=== PATIENT | male | born 1940 | race Caucasian/White ===

== ENCOUNTER 2017-12-27 05:52 | Inpatient (IN) | payer MEDICARE, BC ==
[2017-12-27 07:14] LABS: #Lymphocytes 1.2 thou/uL (1.20-3.40); #Neutrophils 7.8 thou/uL (1.40-6.50); %Basophils 0.5 % (0.0-1.0); %Eosinophils 0.4 % (0.0-10.0); %Lymphocytes 11.6 % (21.0-51.0); %Monocytes 10.4 % (0.0-10.0); %Neutrophils 77.1 % (42.0-75.0); Hemoglobin 13.6 g/dL (14.0-18.0); Mean Corpuscular HGB CONC 33.1 g/dL (32.0-36.0); Mean Corpuscular Hemoglobin 33.1 pg (27.0-31.0); Mean Platelet Volume 10.5 fL (7.4-10.4); Platelet Count 152 thou/uL (130-400); RBC Distribution Width 11.9 % (11.5-14.5); Red Blood Cell (RBC) Count 4.12 mill/uL (4.70-6.10)
[2017-12-27] MEDS ORDERED: Cefepime 2 GM/10 ML SYR ONE (07:29)
[2017-12-27] MEDS ORDERED: Clindamycin/D5W 900 mg/50 ml Premix Bag ONE (07:29)
[2017-12-27 07:31] LABS: ALT (SGPT) 55 U/L (8-55); AST (SGOT) 29 U/L (5-34); Albumin 3.8 g/dL (3.4-4.8); Alkaline Phosphatase 208 U/L (40-150); Anion Gap 15 mmol/L (10-20); BUN (Urea Nitrogen) 19 mg/dL (8.4-25.7); Bilirubin, Total 0.9 mg/dL (0.2-1.2); CK (CPK) 48 U/L (30-200); Calc. Creatinine Clearance 0 mL/min (70-130); Calcium 9.6 mg/dL (7.8-10.44); Carbon Dioxide 25 mmol/L (23-31); Chloride 98 mmol/L (98-107); Estimated GFR-MDRD Greater than 90; Globulin 3.9 g/dL (2.4-3.5); Glucose 134 mg/dL (83-110); Potassium 4.1 mmol/L (3.5-5.1); Protein, Total 7.7 g/dL (5.8-8.1); Sodium 134 mmol/L (136-145)
[2017-12-27 07:35] LABS: CKMB 1.4 ng/mL (0-6.6); Troponin I 0.073 ng/mL (< 0.028)
[2017-12-27] MEDS ORDERED: Nitroglycerin 2% Ointment 1 INCH/1 GM Packet ONE (07:56)
[2017-12-27] MEDS ORDERED: Furosemide 40 MG/4 ML VIAL ONE ×2 (07:57→08:04)
[2017-12-27] MEDS ORDERED: Furosemide 40 MG TAB ONE (08:04)
--- NOTE | 2017-12-27 10:05 | RAD ---
PORTABLE AP CHEST: Date: 12/27/17 HISTORY: Dyspnea. Possible aspiration. COMPARISON: 04/24/16. FINDINGS: There are increased interstitial opacities bilaterally, which do appear increased from the prior stud y. These increased interstitial densities may be related to worsening chronic lung changes and/or sup erimposed infectious process or asymmetric pulmonary edema superimposed on chronic lung changes. No n ew area of consolidation or pleural fluid is seen. The cardiac silhouette and pulmonary vasculature a re within normal limits. Remote healed right-sided rib fractures are present. Multiple skin clips ove rlie the left lateral chest. IMPRESSION: Increased interstitial opacities bilaterally, which appear increased from the prior exam. Findings co uld potentially be related to worsening chronic interstitial lung changes, but superimposed infectiou s process or pulmonary edema superimposed on chronic lung changes is a possibility. Follow-up evaluat ion is recommended. POS: MEGHAN
[2017-12-27 10:44] LABS: Troponin I 0.126 ng/mL (< 0.028)
[2017-12-27 13:47] LABS: Troponin I 0.118 ng/mL (< 0.028)
[2017-12-27] MEDS ORDERED: Clindamycin/D5W 600 MG in Premix Bag 1 BAG IVPB SCH (14:00)
[2017-12-27] MEDS ORDERED: Clindamycin/D5W 300 MG/50 ML BAG IVPB SCH (14:13)
[2017-12-27] MEDS ORDERED: Ondansetron HCl/PF 4 MG/2 ML Vial IVP PRN ×2 (14:13→14:14)
[2017-12-27] MEDS ORDERED: Acetaminophen 325 MG TAB PO PRN ×2 (14:13→14:14)
[2017-12-27] MEDS ORDERED: Ondansetron ODT 4 MG TAB PO PRN (14:13)
[2017-12-27] MEDS ORDERED: Ondansetron ODT 4 MG TAB SL PRN (14:14)
[2017-12-27] MEDS ORDERED: Nitroglycerin 2% Ointment 1 INCH/1 GM Packet TOP SCH (14:15)
[2017-12-27] MEDS: Sodium Chloride 0.9% 1,000 ML IV SCH (15:08)
[2017-12-27] MEDS: Clindamycin/D5W 900 MG in Premix Bag 1 BAG IVPB SCH ×2 (15:16→23:54)
[2017-12-27] MEDS ORDERED: Prevnar 13-Val Conj/PF 0.5 ML SYRINGE IM ONE (15:45)
[2017-12-27] MEDS ORDERED: Cefepime 2 GM, Syringe 2.5 ML in Sterile Water 10 ML SLOW IVP SCH (20:00)
[2017-12-27] MEDS: Famotidine 20 MG TAB PO SCH (21:29)
[2017-12-28] MEDS: Sodium Chloride 0.9% 1,000 ML IV SCH ×2 (04:30→13:22)
[2017-12-28 05:20] LABS: ALT (SGPT) 39 U/L (8-55); AST (SGOT) 23 U/L (5-34); Albumin 3.4 g/dL (3.4-4.8); Alkaline Phosphatase 166 U/L (40-150); Anion Gap 10 mmol/L (10-20); BUN (Urea Nitrogen) 21 mg/dL (8.4-25.7); Bilirubin, Total 1.3 mg/dL (0.2-1.2); Calc. Creatinine Clearance 87 mL/min (70-130); Calcium 9.1 mg/dL (7.8-10.44); Carbon Dioxide 27 mmol/L (23-31); Chloride 101 mmol/L (98-107); Estimated GFR-MDRD Greater than 90; Globulin 3.4 g/dL (2.4-3.5); Glucose 89 mg/dL (83-110); Magnesium 1.9 mg/dL (1.6-2.6); Potassium 3.6 mmol/L (3.5-5.1); Protein, Total 6.8 g/dL (5.8-8.1); Sodium 134 mmol/L (136-145)
[2017-12-28 05:40] LABS: Band 3 % (5-11); Eosinophils 3 % (0-10); Hemoglobin 11.9 g/dL (14.0-18.0); Lymphocytes 14 % (21-51); MDiff Complete? YES; Macrocytosis SLIGHT = 6-15 cells (100X) (0-5/hpf); Mean Corpuscular HGB CONC 33.4 g/dL (32.0-36.0); Mean Corpuscular Hemoglobin 33.4 pg (27.0-31.0); Mean Platelet Volume 10.2 fL (7.4-10.4); Monocytes 8 % (0-10); Neutrophil 71 % (42-75); PLT Morphology Comment Appears Adequate; Platelet Count 136 thou/uL (130-400); RBC Distribution Width 11.9 % (11.5-14.5); Reactive Lymphocytes 1 % (0-10); Red Blood Cell (RBC) Count 3.57 mill/uL (4.70-6.10); White Blood Cell (WBC) Count 6.1 thou/uL (4.8-10.8)
[2017-12-28] MEDS: Clindamycin/D5W 900 MG in Premix Bag 1 BAG IVPB SCH ×2 (08:31→16:34)
[2017-12-28] MEDS: Famotidine 20 MG TAB PO SCH (08:33)
[2017-12-28] MEDS ORDERED: Bisacodyl 10 MG SUPP PR PRN (13:02)
--- NOTE | 2017-12-28 13:08 | PDOC.PN ---
- Subjective Encounter Start Date: 12/28/17 Encounter Start Time: 13:00 Subjective: f/u for suspected aspiration PNA with chronic dysphagia, PEG tube after -: CVA 2014. TF's on hold but reports pt looks better today. Received -: TF's nocturnally at [facility]. - Objective Resuscitation Status: Resuscitation Status DNR:Do Not Resuscitate MAR Reviewed: Yes Vital Signs & Weight: Vital Signs (12 hours) Temp Pulse Resp BP BP Pulse Ox 12/28/17 11:45 97.7 F 63 18 117/57 L 95 12/28/17 07:05 97.8 F 61 24 H 131/59 L 95 12/28/17 04:00 98.2 F 74 17 132/61 92 L Weight Weight 164 lb 9.6 oz I&O: 12/27/17 12/28/17 12/29/17 06:59 06:59 06:59 Intake Total 200 920 Output Total 500 Balance 200 420 Result Diagrams: 12/28/17 04:40 12/28/17 04:40 Additional Labs: Accuchecks 12/28/17 11:32 POC Glucose 96 Microbiology 12/27/17 07:00 Venous blood - Right Arm Blood Culture - Preliminary Gram Positive Cocci 12/27/17 06:38 Venous blood - Right Arm Blood Culture - Preliminary Gram Positive Cocci Laboratory Tests 12/27/17 12/27/17 12/27/17 06:38 07:01 07:01 Sodium 134 L Troponin I 0.073 H B-Natriuretic Peptide 45.0 12/27/17 12/27/17 10:10 13:21 Sodium Troponin I 0.126 H 0.118 H B-Natriuretic Peptide Radiology Reviewed by me: Yes (PCXR - interstitial opacities bilat) EKG Reviewed by me: Yes (Tele - SR) Phys Exam - Physical Examination alert, aphasic HEENT: PERRLA, oral pharynx no lesions Neck: no JVD, supple coarse sounds globally Cardiovascular: RRR PEG site CDI Gastrointestinal: soft, non-tender, no distention, positive bowel sounds Musculoskeletal: no edema, pulses present R hemiparesis, expressive aphasia Skin: normal turgor, cap refill <2 seconds Deviation from normal: Duggan with carlos urine Dx/Plan (1) Aspiration pneumonia due to regurgitated gastric secretions Code(s): J69.0 - PNEUMONITIS DUE TO INHALATION OF FOOD AND VOMIT Status: Acute Qualifiers: Laterality: bilateral Lung location: lower lobe of lung Qualified Code(s) : J69.0 - Pneumonitis due to inhalation of food and vomit Comment: Continue Clindamycin, add Vancomycin and Cefepime, Duonebs q4h prn, NPO (2) Sepsis due to pneumonia Code(s): J18.9 - PNEUMONIA, UNSPECIFIED ORGANISM; A41.9 - SEPSIS, UNSPECIFIED ORGANISM Status: Acute Comment: Gm + cocci in 2/2 blood cx, add Vancomycin pending final identification, continue IVF's (3) CVA, old, aphasia Code(s): I69.320 - APHASIA FOLLOWING CEREBRAL INFARCTION Status: Chronic Comment: with chronic dysphagia, R hemiparesis and bed bound status (4) GERD (gastroesophageal reflux disease) Code(s): K21.9 - GASTRO-ESOPHAGEAL REFLUX DISEASE WITHOUT ESOPHAGITIS Status: Chronic Comment: Pepcid 20mg BID (5) PEG (percutaneous endoscopic gastrostomy) status Code(s): Z93.1 - GASTROSTOMY STATUS Status: Chronic Comment: Hold Jevity 1.5 another 24h, consult dietitian for resumption of TF's and low-volume - Plan plan discussed w/ family, continue antibiotics, PT/OT, social services counselor, speech therapy, respiratory therapy, DVT proph w/SCDs Continue Clindamycin -: Add Vancomycin and Cefepime -: Change IVF D5NS 100ml/h -: Change to inpt status -: Dietitian consult for adjustment to current TF regimen * AM lab: BMP, CBC * Code status: DNR
[2017-12-28] MEDS ORDERED: Acetaminophen 650 MG/20.3 ML UDCUP PO PRN (13:14)
[2017-12-28] MEDS ORDERED: Artificial Tear Sol 15 ML BOT EA EYE PRN (13:15)
[2017-12-28] MEDS ORDERED: Famotidine 20 MG TAB PER TUBE SCH (13:30)
[2017-12-28] MEDS: Vancomycin HCl 1 GM in Premix Bag 1 BAG IVPB SCH (14:45)
[2017-12-28] MEDS: Dextrose 5 % And 0.9 % NaCl 1,000 ML IV SCH (14:45)
[2017-12-28] MEDS ORDERED: Cefepime 2 GM in Sodium Chloride 0.9% 100 ML IVPB SCH (21:00)
[2017-12-28] MEDS: traZODone HCl 50 MG TAB PER TUBE SCH (21:27)
[2017-12-28] MEDS: Famotidine 20 MG TAB PER TUBE SCH (21:27)
[2017-12-28] MEDS: Finasteride 5 MG TAB PO SCH (21:28)
[2017-12-29] MEDS: Dextrose 5 % And 0.9 % NaCl 1,000 ML IV SCH ×3 (00:02→20:30)
[2017-12-29] MEDS: Vancomycin HCl 1 GM in Premix Bag 1 BAG IVPB SCH ×2 (04:33→15:40)
[2017-12-29 05:32] LABS: Band 1 % (5-11); Eosinophils 7 % (0-10); Lymphocytes 33 % (21-51); MDiff Complete? YES; Mean Corpuscular HGB CONC 33.4 g/dL (32.0-36.0); Mean Corpuscular Hemoglobin 33.4 pg (27.0-31.0); Mean Platelet Volume 9.8 fL (7.4-10.4); Monocytes 13 % (0-10); Neutrophil 46 % (42-75); PLT Morphology Comment Appears Adequate; Platelet Count 137 thou/uL (130-400); RBC Distribution Width 11.6 % (11.5-14.5); White Blood Cell (WBC) Count 4.8 thou/uL (4.8-10.8)
[2017-12-29 05:35] LABS: Anion Gap 7 mmol/L (10-20); BUN (Urea Nitrogen) 18 mg/dL (8.4-25.7); Calc. Creatinine Clearance 99 mL/min (70-130); Calcium 8.7 mg/dL (7.8-10.44); Carbon Dioxide 28 mmol/L (23-31); Chloride 104 mmol/L (98-107); Estimated GFR-MDRD Greater than 90; Glucose 92 mg/dL (83-110); Potassium 3.8 mmol/L (3.5-5.1); Sodium 135 mmol/L (136-145)
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
[2017-12-29] MEDS: Cefepime 2 GM, Syringe 2.5 ML in Sterile Water 10 ML SLOW IVP SCH ×2 (09:18→21:05)
[2017-12-29] MEDS: Clindamycin/D5W 900 MG in Premix Bag 1 BAG IVPB SCH ×3 (09:18→17:03)
[2017-12-29] MEDS: Famotidine 20 MG TAB PER TUBE SCH ×2 (09:19→21:02)
[2017-12-29 12:35] VITALS: BMI 22.6
--- NOTE | 2017-12-29 14:51 | PDOC.PN ---
- Subjective Encounter Start Date: 12/29/17 Encounter Start Time: 14:40 Subjective: f/u for suspected aspiration with chronic dysphagia after CVA and TF 's -: Overall doing ok per nursing. ST recommending bolus feeds for daytime. - Objective MAR Reviewed: Yes Vital Signs & Weight: Vital Signs (12 hours) Temp Pulse Resp BP Pulse Ox 12/29/17 12:00 65 20 136/66 97 12/29/17 08:00 98.1 F 65 20 122/58 L 97 12/29/17 03:28 97.8 F 64 20 122/61 94 L Weight Admit Weight 162 lb 3.2 oz Weight 166 lb 8 oz I&O: 12/28/17 12/29/17 12/30/17 06:59 06:59 06:59 Intake Total 2570 Output Total 1000 Balance 1570 Result Diagrams: 12/29/17 04:58 12/29/17 04:58 Additional Labs: Microbiology 12/27/17 07:00 Venous blood - Right Arm Blood Culture - Preliminary Gram Positive Cocci 12/27/17 07:00 Venous blood - Right Arm Blood Culture - Preliminary Coagulase Neg Staphylococcus 12/27/17 06:38 Venous blood - Right Arm Blood Culture - Preliminary Staphylococcus species 12/27/17 06:38 Venous blood - Right Arm Blood Culture - Preliminary Gram Positive Cocci Laboratory Tests 12/27/17 12/27/17 12/27/17 06:38 07:01 07:01 Sodium 134 L Troponin I 0.073 H B-Natriuretic Peptide 45.0 12/27/17 12/27/17 10:10 13:21 Sodium Troponin I 0.126 H 0.118 H B-Natriuretic Peptide EKG Reviewed by me: Yes (Tele - SR) Phys Exam - Physical Examination Constitutional: NAD alert HEENT: PERRLA, oral pharynx no lesions Neck: no JVD coarse sounds bilat Cardiovascular: RRR PEG site CDI Gastrointestinal: soft, non-tender, no distention, positive bowel sounds Musculoskeletal: no edema, pulses present Skin: normal turgor, cap refill <2 seconds Dx/Plan (1) Aspiration pneumonia due to regurgitated gastric secretions Code(s): J69.0 - PNEUMONITIS DUE TO INHALATION OF FOOD AND VOMIT Status: Acute Qualifiers: Laterality: bilateral Lung location: lower lobe of lung Qualified Code(s) : J69.0 - Pneumonitis due to inhalation of food and vomit Comment: Continue Clindamycin, add Vancomycin and Cefepime, Duonebs q4h prn, NPO (2) Sepsis due to pneumonia Code(s): J18.9 - PNEUMONIA, UNSPECIFIED ORGANISM; A41.9 - SEPSIS, UNSPECIFIED ORGANISM Status: Acute Comment: Gm + cocci in 2/2 blood cx, add Vancomycin pending final identification, continue IVF's, likely de-escalate abx coverage in next 24h (3) CVA, old, aphasia Code(s): I69.320 - APHASIA FOLLOWING CEREBRAL INFARCTION Status: Chronic Comment: with chronic dysphagia, R hemiparesis and bed bound status (4) GERD (gastroesophageal reflux disease) Code(s): K21.9 - GASTRO-ESOPHAGEAL REFLUX DISEASE WITHOUT ESOPHAGITIS Status: Chronic Comment: Pepcid 20mg BID (5) PEG (percutaneous endoscopic gastrostomy) status Code(s): Z93.1 - GASTROSTOMY STATUS Status: Chronic Comment: Resume Jevity 1.5 bolus feeds per dietary recs - Plan continue antibiotics, PT/OT, social media intern, speech therapy, respiratory therapy, DVT proph w/SCDs Stable currently -: Resume Jevity 1.5 bolus feeds for daytime -: Continue Cefepime, Clindamycin and Vancomycin another 24h -: Monitor tolerance for bolus feeds -: Continue Pepcid 20mg BID * Code Status: DNR
[2017-12-29] MEDS: traZODone HCl 50 MG TAB PER TUBE SCH (21:02)
[2017-12-29] MEDS: Finasteride 5 MG TAB PO SCH (21:02)
[2017-12-30] MEDS: Clindamycin/D5W 900 MG in Premix Bag 1 BAG IVPB SCH ×2 (00:07→10:47)
[2017-12-30 02:51] LABS: Vancomycin, Trough 16.5 ug/mL
[2017-12-30] MEDS: Vancomycin HCl 1 GM in Premix Bag 1 BAG IVPB SCH (03:14)
[2017-12-30] MEDS: Dextrose 5 % And 0.9 % NaCl 1,000 ML IV SCH (03:18)
[2017-12-30] MEDS: Famotidine 20 MG TAB PER TUBE SCH (10:48)
[2017-12-30] MEDS: Cefepime 2 GM, Syringe 2.5 ML in Sterile Water 10 ML SLOW IVP SCH (10:55)
--- NOTE | 2017-12-30 12:46 | DIS ---
DATE OF ADMISSION: 12/28/2017 DATE OF DISCHARGE: 12/30/2017 DISCHARGE DIAGNOSES: 1. Aspiration pneumonia with suspected Staphylococcus and streptococcal species. 2. Sepsis secondarily to aspiration pneumonia, resolving. 3. History of cerebrovascular accident with residual expressive and receptive aphasia. 4. Chronic dysphagia with PEG tube. 5. Gastroesophageal reflux disease. 6. Severe deconditioning. 7. Hyponatremia, mild. 8. Chronic macrocytic anemia, stable. CONSULTATIONS: None. PERTINENT LAB AND X-RAY FINDINGS: Sodium ranged between 134-135. Lactic acid level 2.0. Magnesium level 1.9. LFTs within normal limits. Alkaline phosphatase ranged between 166-208, BNP 45. Hemoglo bin ranged between 11.0-13.6. Blood cultures x2 dated 12/27/[address] aureus [address] St aphylococcus capitis, likely skin contaminant. Portable chest x-ray dated 12/27/2017 showed increase d interstitial opacities bilaterally. HOSPITAL COURSE: Patient was admitted to the telemetry unit after presenting with increased dyspnea in the context of chronic dysphagia after CVA with right hemiplegia. The patient was initially noted with oxygen saturations in the upper 80% range on room air and placed on oxygen supplementation. Ch est imaging showed bilateral pulmonary infiltrates concerning for likely aspiration event given patie nt's chronic dysphagia and an ongoing PEG tube feeds continuously. The patient was placed on IV clin damycin and cefepime and monitored clinically. Patient was slow to clinically improve given overall clinical status immobilization and a prior CVA. The patient was evaluated by the dietitian services with recommendations for bolus feeds instead of continual feeds from the hours of 7 a.m. to 2100. Th e patient was tolerating bolus feeds with water flushes without complication. The patient was weaned on oxygen supplementation to current level of 1.5 liters per minute by nasal cannula. The patient r eceived IV antibiotic therapy throughout the hospital course and will transition to clindamycin and O mnicef to complete outpatient coverage. Overall, the patient remained clinically stable throughout h ospital course and ready for discharge on 12/30/2017. DISCHARGE MEDICATIONS: 1. Omnicef 300 mg per PEG tube b.i.d. x10 days. 2. Clindamycin 450 mg per PEG tube q.6 hours x10 days. 3. Pepcid suspension 40 mg per PEG tube b.i.d. 4. Ferrous sulfate 300 mg per PEG tube daily. 5. Proscar 5 mg per PEG tube at bedtime. 6. Preparation HC one application topically b.i.d. p.r.n. 7. Levsin 0.125 mg per PEG tube b.i.d. 8. Claritin 10 mg per PEG tube daily p.r.n. 9. Multivitamin 15 mL per PEG tube daily. 10. Zoloft 50 mg per PEG tube at bedtime. 11. Trazodone 25 mg per PEG tube at bedtime. FOLLOWUP: The patient may follow up with his primary care provider, Dr. Krissy El after discha rge to [facility] in [place], [place]. CONDITION ON DISCHARGE: Fair. ACTIVITY: Ad soraida. DIET: Jevity 1.5 per PEG tube, 5 cans between the hours of 7 a.m. to 2100 p.m. with water flushes 60 mL pre and post bolus feeds. CODE STATUS: DO NOT RESUSCITATE. DISPOSITION: Discharged to [facility] on 12/30/2017. Total time preparing and coordinating discharge is 34 minutes.
[2017-12-31 17:20] VITALS: BP 146/58; TEMP 98
--- NOTE | 2018-01-06 10:45 | PQF ---
[facility],FLOYD GLASSEDIN GELLER DO [id number] CLINICAL DOCUMENTATION CLARIFICATION FORM: POST DISCHARGE Please exercise your independent, professional judgment in responding to the clarification form. Clinical indicators are provided on the bottom of this form for your review. Thank you. Please check appropriate box(s): [ ] Acute Respiratory Failure: [ ] with Hypoxia [ ] Acute On Chronic Respiratory Failure: [ ] with Hypoxia [ ] Acute Respiratory Failure due to: (etiology) [ x ] Hypoxia [ ] Other diagnosis [ ] Unable to determine In addition, please specify: Present on Admission (POA): [ x ] Yes [ ] No [ ] Unable to determine DC SUMMARY; 'Aspiration pneumonia with suspected Staphylococcus and streptococcal species. Sepsis secondarily to aspiration pneumonia'. 'Initially noted with oxygen saturations in the upper 80% range on room air and placed on oxygen supplementation.' 'Weaned on oxygen supplementation to current level of 1.5 liters.' H&P; 'Possible aspiration pneumonia. Patient is newly hypoxic.' 'Respiratory rate 24, saturating at 95% on 4 liters.' 'He has upper airway gurgling.' 'chest x-ray showed vascular congestion, BNP was negative, labs were normal.' ER; 'pt does not use O2 normally'. Respiratory rates 22 - 24; O2 sat 90% on 2L; 94% on 3L; 95% on 4L CLINICAL INDICATORS - SIGNS / SYMPTOMS / LABS Decreased oxygen saturation (<90% room air or < 95% on oxygen). Cyanosis/Hypoxia Pulmonary infiltrates RISK FACTORS Sepsis Aspiration pneumonia Staphylococcal Pneumonia CVA residual; chronic dysphagia, hemiplegia PEG tube status Bedbound status GERD Hypoxia History of tobacco smoke TREATMENTS: Oxygen Monitoring of oxygenation status Antibiotics IV (This form is maintained as a part of the permanent medical record) 2014 [employer], [employer]. All Rights Reserved [email or web address] [phone] [email or web address]
--- NOTE | 2018-01-10 20:20 | EKG ---
Test Reason : Blood Pressure : / mmHG Vent. Rate : 084 BPM Atrial Rate : 084 BPM P-R Int : 162 ms QRS Dur : 076 ms QT Int : 370 ms P-R-T Axes : 031 056 036 degrees QTc Int : 437 ms Normal sinus rhythm Normal ECG Confirmed by PEGGY COX MD ([id number]), map editor LANA PEDRAZA ([id number]) on 01/10/2018 8:20:25 PM Referred By: Confirmed By:PEGGY COX MD
== END 2017-12-30 15:50 | DRG 871 ==
LOC: ERS 05:52 → ERHOLD 08:41 → 2NO 14:12 → OBSVTOIN 12-28 12:44 → 2NO 12-28 15:09
PROVIDERS: ADMIT Internal Medicine Infectious Disease; ATTEND Internal Medicine Infectious Disease
DX: A41.2 Sepsis due to unspecified staphylococcus (principal); J69.0 Pneumonitis due to inhalation of food and vomit; J15.20 Pneumonia due to staphylococcus, unspecified; J15.4 Pneumonia due to other streptococci; I69.351 Hemiplegia and hemiparesis following cerebral infarction affecting right dominant side; D53.9 Nutritional anemia, unspecified; I67.2 Cerebral atherosclerosis; I69.320 Aphasia following cerebral infarction; E87.1 Hypo-osmolality and hyponatremia; R09.02 Hypoxemia; A40.9 Streptococcal sepsis, unspecified; Z93.1 Gastrostomy status; K21.9 Gastro-esophageal reflux disease without esophagitis; I69.391 Dysphagia following cerebral infarction; Z74.01 Bed confinement status; Z66 Do not resuscitate; Z87.891 Personal history of nicotine dependence; N40.0 Benign prostatic hyperplasia without lower urinary tract symptoms
CPT/HCPCS: 36415; 36416; 71045; 80048; 80053; 80202; 82553; 83605; 83735; 83880; 84484; 85007; 85025; 85027; 87040; 87077; 87149; 93005; 94640; 94760; 96365; 96367; 96375; A4216; G8996-GN-CN; G8997-GN-CN; G8998-GN-CN; J0692; J1940; J3370; J3490; J7050; J7620

== ENCOUNTER 2018-05-04 03:05 | Emergency (ER) | payer MEDICARE, BC ==
[2018-05-04 04:08] LABS: #Lymphocytes 0.7 thou/uL (1.20-3.40); #Monocytes 1.4 thou/uL (0.11-0.59); #Neutrophils 10.4 thou/uL (1.40-6.50); %Basophils 0.3 % (0.0-1.0); %Eosinophils 0.2 % (0.0-10.0); %Lymphocytes 5.2 % (21.0-51.0); %Monocytes 11.5 % (0.0-10.0); %Neutrophils 82.8 % (42.0-75.0); Mean Corpuscular HGB CONC 34.5 g/dL (32.0-36.0); Mean Corpuscular Hemoglobin 33.8 pg (27.0-31.0); Mean Platelet Volume 9.2 fL (7.4-10.4); Platelet Count 194 thou/uL (130-400); Red Blood Cell (RBC) Count 4.16 mill/uL (4.70-6.10); White Blood Cell (WBC) Count 12.6 thou/uL (4.8-10.8)
[2018-05-04 04:25] LABS: ALT (SGPT) 29 U/L (8-55); AST (SGOT) 26 U/L (5-34); Albumin 3.6 g/dL (3.4-4.8); Alkaline Phosphatase 84 U/L (40-150); Anion Gap 16 mmol/L (10-20); BUN (Urea Nitrogen) 34 mg/dL (8.4-25.7); Bilirubin, Total 0.8 mg/dL (0.2-1.2); Calc. Creatinine Clearance 0 mL/min (70-130); Calcium 8.8 mg/dL (7.8-10.44); Carbon Dioxide 26 mmol/L (23-31); Chloride 103 mmol/L (98-107); Estimated GFR-MDRD 75; Globulin 3.9 g/dL (2.4-3.5); Glucose 146 mg/dL (83-110); Lipase 18 U/L (8-78); Potassium 3.5 mmol/L (3.5-5.1); Protein, Total 7.5 g/dL (5.8-8.1); Sodium 141 mmol/L (136-145)
[2018-05-04 04:29] LABS: CKMB 1.1 ng/mL (0-6.6); Troponin I Less than 0.010 ng/mL (< 0.028)
[2018-05-04 05:19] LABS: Bilirubin Negative (Negative); Blood, Urine Negative (Negative); Clarity CLEAR (Clear); Glucose, Urine (Dipstick) Negative (Negative); Leukocyte Negative (Negative); Nitrite Negative (Negative); Protein, Urine (Dipstick) Negative (Neg-Trace); Specific Gravity, Urine 1.026 (1.002-1.036); Urobilinogen 0.2 mg/dL (0.2-1.0); pH, Urine 5.5 (5.0-9.0)
--- NOTE | 2018-05-04 08:07 | RAD ---
PORTABLE CHEST 1 VIEW: DATE: 05/04/18. TIME: 4:18 a.m. HISTORY: Cough. FINDINGS: Comparison is made with the exam of 12/27/17. The heart size is normal. The aorta is tortuous. There is pulmonary vascular congestion. No lobar consolidation, pneumothoraces, or large effusions are seen. Surgical clips are seen in the left lowe r lateral chest. Old right-sided rib fractures are present. POS: H
--- NOTE | 2018-05-04 08:55 | CT ---
PRELIMINARY REPORT/[facility]/EMERGENTY AFTER-HOURS PROCEDURE CT Abdomen and Pelvis With Intravenous Contrast CLINICAL HISTORY: 77 years old, male; Signs and symptoms; Bloating; Prior surgery; Patient HX: 77 yo m presents to ed w ith vomiting. snf records report PT has been vomiting since "shift change yesterday", which was around 6 pm. ; Additional info: oral contrast given through peg tube TECHNIQUE: Axial computed tomography images of the abdomen and pelvis with intravenous contrast. Coronal reformatted images were created and reviewed. COMPARISON: No relevant prior studies available. FINDINGS: Lower thorax: No acute findings. ABDOMEN: Liver: No mass. Gallbladder and bile ducts: No calcified stones. No ductal dilation. Pancreas: Normal. No ductal dilation. Spleen: Normal. No splenomegaly. Adrenals: Normal. No mass. Kidneys and ureters: Multiple renal cysts and additional indeterminate hypodensities. Vascular calcif ications versus nonobstructing calculi Stomach and bowel: Gastrostomy tube in the stomach. Presumed incidental small bowel malrotation. No o bstruction or volvulus. Large amount of stool in the colon. Mild distention of the distal colon and R elative decompression of the distal sigmoid colon and and fluid/thickening in the distal sigmoid colo n and rectal vault Appendix: No findings to suggest acute appendicitis. PELVIS: Bladder: Unremarkable as visualized. Reproductive: Unremarkable as visualized ABDOMEN and PELVIS: Intraperitoneal space: No free air. No significant fluid collection. Bones/joints: No acute fracture. No dislocation. Degenerative changes in the spine Soft tissues: Unremarkable. Vasculature: Atherosclerosis. 3.2 cm infrarenal abdominal aortic aneurysm. Lymph nodes: Normal. No enlarged lymph nodes. IMPRESSION: Incidental small bowel malrotation. No definite volvulus or small bowel obstruction Question constipation. Nonspecific mild thickening/fluid/liquid stool in the distal colon as described. Nonobstructing renal calculi versus vascular calcifications Infrarenal abdominal aortic aneurysm measuring 3.2 cm without definite rupture Thank you for allowing us to participate in the care of your patient. Dictated and Authenticated by: Jerry Roblero MD 05/04/2018 5:40 AM Central Time ([place] & [place]) FINAL REPORT CT ABDOMEN AND PELVIS WITH IV CONTRAST PERFORMED ON AN EMERGENCY BASIS: Date: 05/04/18 Time: 0516 hours HISTORY: Abdominal pain. Bloating. COMPARISON: 02/09/17. FINDINGS: Findings agree with the preliminary report by Mónica. Evidence of incomplete bowel rotation. No evidenc e of obstruction. Constipation. Prominent atherosclerosis. POS: OFF
[2018-05-04] MEDS ORDERED: ISOVUE-370 76%-LOCM 1 ML ONE (09:37)
[2018-05-04] MEDS ORDERED: Iopamidol 370 76% 50 ML VIAL FS ONE (09:37)
== END 2018-05-04 09:03 | disposition home or self-care (01) ==
LOC: ERS 03:05
DX: K59.00 Constipation, unspecified (principal); I10 Essential (primary) hypertension; Z86.73 Personal history of transient ischemic attack (TIA), and cerebral infarction without residual deficits; Z79.899 Other long term (current) drug therapy; K21.9 Gastro-esophageal reflux disease without esophagitis; D64.9 Anemia, unspecified; E78.5 Hyperlipidemia, unspecified; F03.90 Unspecified dementia, unspecified severity, without behavioral disturbance, psychotic disturbance, mood disturbance, and anxiety; Z87.891 Personal history of nicotine dependence
CPT/HCPCS: 36415; 51701; 71045; 74177; 80053; 81003; 82553; 83690; 84484; 85025; 93005

== ENCOUNTER 2018-05-07 11:57 | Emergency (ER) | payer MEDICARE, BC ==
[2018-05-07 13:37] LABS: #Eosinphils 0.4 thou/uL (0.0-0.7); #Lymphocytes 1.5 thou/uL (1.20-3.40); #Monocytes 0.9 thou/uL (0.11-0.59); #Neutrophils 3.8 thou/uL (1.40-6.50); %Basophils 0.2 % (0.0-1.0); %Eosinophils 6.1 % (0.0-10.0); %Lymphocytes 22.6 % (21.0-51.0); %Monocytes 13.1 % (0.0-10.0); Hemoglobin 13.7 g/dL (14.0-18.0); Mean Corpuscular HGB CONC 32.9 g/dL (32.0-36.0); Mean Corpuscular Hemoglobin 32.3 pg (27.0-31.0); Mean Corpuscular Volume 98.1 fL (78.0-98.0); Platelet Count 161 thou/uL (130-400); RBC Distribution Width 11.9 % (11.5-14.5); Red Blood Cell (RBC) Count 4.24 mill/uL (4.70-6.10); White Blood Cell (WBC) Count 6.5 thou/uL (4.8-10.8)
[2018-05-07 14:12] LABS: ALT (SGPT) 23 U/L (8-55); AST (SGOT) 21 U/L (5-34); Albumin 3.7 g/dL (3.4-4.8); Alkaline Phosphatase 86 U/L (40-150); Anion Gap 14 mmol/L (10-20); BUN (Urea Nitrogen) 30 mg/dL (8.4-25.7); Bilirubin, Total 0.4 mg/dL (0.2-1.2); Calc. Creatinine Clearance 0 mL/min (70-130); Calcium 9.3 mg/dL (7.8-10.44); Carbon Dioxide 25 mmol/L (23-31); Chloride 107 mmol/L (98-107); Estimated GFR-MDRD Greater than 90; Globulin 4.3 g/dL (2.4-3.5); Glucose 99 mg/dL (83-110); Lipase 52 U/L (8-78); Sodium 142 mmol/L (136-145)
--- NOTE | 2018-05-07 15:47 | CT ---
CT ABDOMEN AND PELVIS WITH CONTRAST: 05/07/18 HISTORY: Abdominal pain, constipation. COMPARISON: CT abdomen and pelvis 05/04/18. FINDINGS: Mild atelectatic type changes in the lung bases. Extensive coronary artery calcifications. No pericar dial effusion. There is contrast throughout the large and small bowel. No evidence of obstruction. No dilated loops of large or small bowel. Multiple bilateral renal calculi. No hydronephrosis. The aorta is tortuous and ectatic. The distal abdominal aorta just above the iliac vessels measures u p to 2.9 cm. Mild dilatation of the common iliac arteries bilaterally. 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 Superior me senteric artery is dilated. There is extensive atherosclerotic plaque of both renal arteries. There are two left and two right re nal arteries. Nonobstructive bilateral renal calculi. The bones are severely osteopenic. IMPRESSION: No acute intra-abdominal abnormality. No evidence for bowel obstruction. POS: MEGHAN
== END 2018-05-07 16:55 | disposition home or self-care (01) ==
LOC: ERS 11:57
DX: K59.00 Constipation, unspecified (principal); I10 Essential (primary) hypertension; D64.9 Anemia, unspecified; E78.5 Hyperlipidemia, unspecified; F03.90 Unspecified dementia, unspecified severity, without behavioral disturbance, psychotic disturbance, mood disturbance, and anxiety; K21.9 Gastro-esophageal reflux disease without esophagitis; Z86.73 Personal history of transient ischemic attack (TIA), and cerebral infarction without residual deficits; Z87.891 Personal history of nicotine dependence; Z79.899 Other long term (current) drug therapy
CPT/HCPCS: 36415; 74177; 80053; 83690; 85025

== ENCOUNTER 2018-10-26 05:08 | Inpatient (IN) | payer MEDICARE, BC ==
[2018-10-26 07:06] LABS: Hemoglobin 12.1 g/dL (14.0-18.0); Mean Corpuscular HGB CONC 33.1 g/dL (32.0-36.0); Mean Corpuscular Volume 96.6 fL (78.0-98.0); Mean Platelet Volume 9.9 fL (7.4-10.4); Platelet Count 133 thou/uL (130-400); RBC Distribution Width 12.2 % (11.5-14.5); Red Blood Cell (RBC) Count 3.78 mill/uL (4.70-6.10); White Blood Cell (WBC) Count 4.3 thou/uL (4.8-10.8)
[2018-10-26 07:25] LABS: ALT (SGPT) 20 U/L (8-55); AST (SGOT) 22 U/L (5-34); Albumin 3.3 g/dL (3.4-4.8); Alkaline Phosphatase 91 U/L (40-150); Anion Gap 14 mmol/L (10-20); BUN (Urea Nitrogen) 38 mg/dL (8.4-25.7); Bilirubin, Total 1.2 mg/dL (0.2-1.2); Calc. Creatinine Clearance 0 mL/min (70-130); Calcium 8.6 mg/dL (7.8-10.44); Carbon Dioxide 22 mmol/L (23-31); Chloride 108 mmol/L (98-107); Estimated GFR-MDRD 77; Globulin 3.1 g/dL (2.4-3.5); Glucose 149 mg/dL (83-110); Potassium 3.9 mmol/L (3.5-5.1); Protein, Total 6.4 g/dL (5.8-8.1); Sodium 140 mmol/L (136-145)
[2018-10-26 07:27] LABS: Band 33 % (5-11); Lymphocytes 28 % (21-51); MDiff Complete? YES; Monocytes 7 % (0-10); Neutrophil 32 % (42-75); RBC Morphology Normal
[2018-10-26 07:50] LABS: CKMB 1.8 ng/mL (0-6.6)
[2018-10-26 09:47] VITALS: BMI 20.9
[2018-10-26] MEDS ORDERED: Sodium Chloride 0.9% 1,000 ML IV SCH (10:45)
[2018-10-26] MEDS ORDERED: Piperacillin/Tazobactam 4.5 GM in Sodium Chloride 0.9% 100 ML IVPB SCH (11:00)
[2018-10-26 11:14] LABS: Troponin I 0.317 ng/mL (< 0.028)
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
[2018-10-26 14:35] LABS: Troponin I 0.232 ng/mL (< 0.028)
[2018-10-26] MEDS ORDERED: Vancomycin HCl 1.5 GM in Sodium Chloride 0.9% 250 ML 300 ML IVPB SCH (15:00)
[2018-10-26] MEDS ORDERED: Ondansetron ODT 4 MG TAB PER TUBE PRN (15:57)
[2018-10-26] MEDS ORDERED: Senokot S 8.6-50 MG TAB PER TUBE PRN (15:57)
[2018-10-26] MEDS ORDERED: Ondansetron PF 4 MG/2 ML Vial IVP PRN (15:57)
[2018-10-26] MEDS ORDERED: Diabetic Tussin 200 MG/10 ML UDCUP PER TUBE PRN (15:57)
[2018-10-26] MEDS ORDERED: Bisacodyl 10 MG SUPP PR PRN (15:57)
[2018-10-26] MEDS: Sodium Chloride 0.9% 1,000 ML IV SCH (16:13)
[2018-10-26] MEDS: Piperacillin/Tazobactam 3.375 GM in Sodium Chloride 0.9% 100 ML IVPB SCH (17:30)
[2018-10-26] MEDS: Vancomycin HCl 1 GM in Premix Bag 1 BAG IVPB SCH (18:05)
--- NOTE | 2018-10-26 22:24 | HP ---
PRIMARY CARE PROVIDER: Dr. Krissy El. CHIEF COMPLAINT: Shortness of breath. HISTORY OF PRESENT ILLNESS: This is a 77-year-old male, who resides at [facility] in [place], [place], with a significant history of prior CVA with residual right hemiparesis, aphasia, dysphagia with chronic tube feeds. The reports that approximately 2:00 a.m. she received a call from the senior living stating that the patient had aspirated. The patient was noted with gasping respirations, gurgling sounds, and had similar episode in May of 2018, necessitating an inpatient stay due to aspiration pneumonia. The patient typically receives a can of tube feeding every 4 hours at the senior living in bolus nature. The patient apparently had been doing fairly well after discharge in May 2018, receiving skilled care for approximately 100 days, ending September 23, 2018. The reports the patient has not had any significant or consistent physical therapy and noticed a decline in his overall health. The patient is two-person assist with transfers to a wheelchair, receiving all feeds through PEG tube. The patient was noted with gurgling sounds as well as gasping for air with O2 saturations 98% on 4 L of oxygen per nasal cannula. The reports that the patient has not been on any antibiotics recently and had been noted at baseline within the last 24 hours prior to the aspiration episode. The patient underwent general evaluation in the emergency room including CT of the abdomen and pelvis showing evidence of colonic distention and concerned for potential bowel obstruction or sigmoid volvulus. The patient received IV fluids as well as IV antibiotics after concerned for the volvulus and aspiration pneumonia. Chest imaging was performed, showing chronic changes in bilateral lung pineda. General Surgery was consulted in the emergency room due to the CT of abdomen findings with recommendations for conservative management and NG tube decompression. The patient underwent NG tube placement with appropriate positioning as well as receiving IV antibiotics with vancomycin, Zosyn as well as IV fluids. The patient was transferred to the telemetry unit for further evaluation. PAST MEDICAL HISTORY: 1. Aspiration pneumonia, recurrent, status post cerebrovascular accident with residual dysphagia and aphasia. 2. Cerebrovascular accident with dense right hemiparesis with associated dysphagia and expressive aphasia. 3. Gastroesophageal reflux disease. 4. Benign prostatic hypertrophy. 5. History of sepsis due to pneumonia. 6. Constipation. 7. Colonic ileus. 8. History of urinary tract infections. PAST SURGICAL HISTORY: 1. Status post PEG tube placement. 2. Status post TURP in 2015. 3. Status post back surgery x3. 4. Status post bone graft in the upper extremities. 5. Status post appendectomy. CURRENT MEDICATIONS: 1. Artificial Tears 1 to 2 drops in each eye b.i.d. 2. Vitamin C 500 mg p.o. daily. 3. Lotrimin 1% one application topically b.i.d. 4. Famotidine 40 mg 5 mL per PEG tube b.i.d. 5. Ferrous sulfate 300 mg per PEG tube daily. 6. Proscar 5 mg per PEG tube at bedtime. 7. Levsin 0.125 mg per PEG tube b.i.d. 8. DuoNebs 3 mL nebulized q.4 hours p.r.n. 9. Multivitamin one tablet per PEG tube daily. 10. MiraLAX 17 g per PEG tube daily. 11. Zoloft 50 mg per PEG tube at bedtime. 12. Simethicone 80 mg per PEG tube q.8 hours. 13. Trazodone 25 mg per PEG tube at bedtime. 14. K-Dur 40 mEq per PEG tube daily. 15. Senokot-S one tablet per PEG tube b.i.d. ALLERGIES: NO KNOWN DRUG ALLERGIES. FAMILY HISTORY: Positive for coronary artery disease and stroke. SOCIAL HISTORY: The patient resides at [facility]. Former tobacco use, none currently. No alcohol or illicit drug use. Accompanied by his , who is a surrogate and medical power of bridge expert. CODE STATUS: Do not resuscitate, do not intubate. REVIEW OF SYSTEMS: CONSTITUTIONAL: Negative for weight loss or gain, ability to conduct usual activities. SKIN: Negative for rash, itching. EYES: Negative for double vision, pain. ENT/MOUTH: Negative for nose bleeding, neck stiffness, pain, tenderness. CARDIOVASCULAR: Negative for palpitations, dyspnea on exertion, orthopnea. RESPIRATORY: Negative for shortness of breath, wheezing, cough, hemoptysis, fever or night sweats. GASTROINTESTINAL: Negative for poor appetite, abdominal pain, heartburn, nausea, vomiting, constipation, or diarrhea. GENITOURINARY: Negative for urgency, frequency, dysuria, nocturia. MUSCULOSKELETAL: Negative for pain, swelling. NEUROLOGIC/PSYCHIATRIC: Negative for anxiety, depression. ALLERGY/IMMUNOLOGIC: Negative for skin rash, bleeding tendency. Otherwise, negative except as stated per HPI. PHYSICAL EXAMINATION: VITAL SIGNS: Currently, blood pressure 133/84, pulse 80, respiratory rate 24, temperature 97.1 degrees Fahrenheit, and O2 saturation 96% on 4 L/minute via nasal cannula. GENERAL APPEARANCE: This is a 77-year-old male, opens eyes to name, aphasic with gurgling respirations. HEENT: Pupils are equal, round, reactive to light and accommodation. Extraocular muscles are intact. No scleral icterus. No conjunctival injection. Nares patent. OP is clear. Teeth in poor repair. Nares with nasal cannula in place. NECK: Supple. No cervical adenopathy. No thyromegaly. No carotid bruits. No JVD appreciated. Gurgling respirations noted. CHEST: Coarse breath sounds bilaterally with upper airway sounds transmitted bilaterally. CARDIOVASCULAR: S1 and S2 without noted murmur, rub, or gallop. ABDOMEN: Distended. Bowel sounds are positive in all four quadrants. No tenderness elicited. No rebound noted. PEG tube in place. EXTREMITIES: Warm and dry with fair turgor. No clubbing, cyanosis, or asymmetric edema appreciated. Pulses palpable distally at the dorsalis pedis, posterior tibial, and popliteal arteries bilaterally. Capillary refill less than 2 seconds. NEUROLOGIC: Expressive aphasia and dense right hemiparesis. Tracks with eyes to name. Moves left arm on command. Not observed ambulatory. PERTINENT LAB AND X-RAY FINDINGS: Sodium 140, potassium 3.9, chloride 108, CO2 of 22, BUN 38, creatinine 0.95, estimated GFR 77, glucose 149, lactic acid level 1.4, calcium 8.6, AST 22, ALT of 20, alkaline phosphatase 91. Troponin I ranged between 0.232 to 0.371. Albumin 3.3. CBC showed a white blood cell count of 4.3, hemoglobin 12, hematocrit 37, platelet count 133, with 32% neutrophils and 33% bands. Portable chest x-ray dated 10/26/2018 showed adequate placement of NG tube with patchy infiltrates in bilateral lung pineda with mild cardiomegaly. CT of the abdomen and pelvis dated 10/26/2018 showed marked gaseous distention of the colon compatible with ileus. Telemetry monitoring shows a sinus mechanism with heart rates in the 80s. ASSESSMENT AND PLAN: 1. Aspiration pneumonia. The patient will be admitted to the medical floor. Recurrent aspiration in the context of colonic ileus and PEG tube feeds. Continue vancomycin 1 g IV q.12 hours with additional Zosyn 3.375 g IV every 6 hours. DuoNeb 3 mL q.4 hours. Mucolytics as tolerated. Oxygen to maintain O2 saturations greater than equal to 90%. General aspiration precautions. Hold tube feeds. 2. Sepsis secondary to aspiration pneumonia. We will continue general sepsis protocol. Lactic acid level 1.4. Antibiotics and IV fluids initiated initially in the emergency department. See #1 above. 3. Colonic ileus. Recurrent. We will continue stool stimulants including Senokot S, MiraLax, and Dulcolax suppositories. General Surgery did evaluate the patient in the emergency room without current recommendations for any surgical intervention. Continue general supportive management. NG tube was placed; however, the patient subsequently removed the tube. 4. Elevated troponin I. Suspect demand ischemic state in the context of aspiration pneumonia and sepsis. Continue supportive management. 5. Acute kidney injury. Suspect volume mediated. We will continue intravenous normal saline at 100 mL/h. Avoid nephrotoxic agents and limit contrast exposure. Repeat creatinine in the a.m. 6. Cerebrovascular accident with dense right hemiparesis and expressive aphasia, chronic. See above. Obtain PT, OT, and Speech Therapy evaluation. 7. Prophylaxis. Sequential compression devices while in bed. Pepcid 5 mL per PEG tube b.i.d. PT, OT, and Speech Therapy evaluation pending. 8. Code status is do not intubate, do not resuscitate, confirmed with the patient's , who is a medical power of bridge expert. Job ID: [id number]
[2018-10-26] MEDS: Finasteride 5 MG TAB FS SCH (22:55)
[2018-10-26] MEDS: Simethicone Chewable 80 MG TAB PER TUBE SCH (22:55)
[2018-10-26] MEDS: Artificial Tear Sol 15 ML BOT EA EYE SCH (22:55)
[2018-10-26] MEDS: traZODone HCl 50 MG TAB PER TUBE SCH (22:55)
[2018-10-26] MEDS: Famotidine 40 MG/5 ML Oral Suspension PER TUBE SCH (22:56)
[2018-10-26] MEDS: Clotrimazole 1 % Cream 30 GM TUBE TOP SCH (22:56)
[2018-10-27] MEDS: Piperacillin/Tazobactam 3.375 GM in Sodium Chloride 0.9% 100 ML IVPB SCH ×4 (00:40→16:43)
[2018-10-27] MEDS: Sodium Chloride 0.9% 1,000 ML IV SCH ×3 (04:58→21:52)
[2018-10-27] MEDS: Vancomycin HCl 1 GM in Premix Bag 1 BAG IVPB SCH ×2 (04:59→16:42)
[2018-10-27] MEDS: Simethicone Chewable 80 MG TAB PER TUBE SCH ×3 (05:06→20:49)
[2018-10-27 06:10] LABS: ALT (SGPT) 16 U/L (8-55); AST (SGOT) 20 U/L (5-34); Alkaline Phosphatase 78 U/L (40-150); Anion Gap 10 mmol/L (10-20); BUN (Urea Nitrogen) 38 mg/dL (8.4-25.7); Bilirubin, Total 1.1 mg/dL (0.2-1.2); Calc. Creatinine Clearance 67 mL/min (70-130); Carbon Dioxide 26 mmol/L (23-31); Chloride 112 mmol/L (98-107); Estimated GFR-MDRD 81; Globulin 3.7 g/dL (2.4-3.5); Glucose 92 mg/dL (83-110); Potassium 3.3 mmol/L (3.5-5.1); Protein, Total 6.7 g/dL (5.8-8.1); Sodium 145 mmol/L (136-145)
[2018-10-27 07:39] LABS: Hemoglobin 10.8 g/dL (14.0-18.0); Mean Corpuscular HGB CONC 31.8 g/dL (32.0-36.0); Mean Corpuscular Volume 97.5 fL (78.0-98.0); Mean Platelet Volume 10.8 fL (7.4-10.4); Platelet Count 126 thou/uL (130-400); RBC Distribution Width 12.3 % (11.5-14.5); Red Blood Cell (RBC) Count 3.49 mill/uL (4.70-6.10); White Blood Cell (WBC) Count 4.7 thou/uL (4.8-10.8)
[2018-10-27 07:45] LABS: Band 38 % (5-11); Lymphocytes 28 % (21-51); MDiff Complete? YES; Monocytes 7 % (0-10); Neutrophil 26 % (42-75); PLT Morphology Comment Appears Decreased; Polychromasia SLIGHT = 2-3 cells (100X) (0-2/hpf)
[2018-10-27] MEDS: Artificial Tear Sol 15 ML BOT EA EYE SCH ×2 (07:47→20:50)
[2018-10-27] MEDS: Polyethylene Glycol 3350 17 GM Packet PER TUBE SCH (07:47)
[2018-10-27] MEDS: Potassium Chloride 20 MEQ TAB PO SCH (07:48)
[2018-10-27] MEDS: Multivitamin W/ Minerals 1 TAB PER TUBE SCH (07:48)
[2018-10-27] MEDS: Lactinex Tablet PO SCH (07:48)
[2018-10-27] MEDS: Clotrimazole 1 % Cream 30 GM TUBE TOP SCH ×2 (07:49→20:50)
[2018-10-27] MEDS: Famotidine 40 MG/5 ML Oral Suspension PER TUBE SCH ×2 (07:49→20:49)
--- NOTE | 2018-10-27 16:43 | PDOC.PN ---
- Subjective Encounter Start Date: 10/27/18 Encounter Start Time: 16:40 Subjective: f/u for sepsis and aspiration pneumonia with Enterococcus and MRSE -: spp on blood cx. Receiving Zosyn/Vanc currently. reports pt -: looking more alert and interactive. - Objective Resuscitation Status - Order Detail: 10/26/18 15:43 Resuscitation Status Routine Resuscitation Status: DNAR: NO Resuscitation Discussed with: Confirmed with MAR Reviewed: Yes Vital Signs & Weight: Vital Signs (12 hours) Temp Pulse Pulse Resp BP BP Pulse Ox 10/27/18 14:52 71 20 98 10/27/18 11:28 99.0 F 79 18 106/55 L 96 10/27/18 10:35 70 20 95 10/27/18 09:33 78 137/59 L 10/27/18 08:00 99 10/27/18 07:05 99 10/27/18 07:03 64 16 99 Pulse Ox 10/27/18 14:52 10/27/18 11:28 10/27/18 10:35 10/27/18 09:33 98 10/27/18 08:00 10/27/18 07:05 10/27/18 07:03 Weight Weight 154 lb 5 oz Result Diagrams: 10/27/18 05:18 10/27/18 05:18 Additional Labs: Microbiology 10/26/18 03:30 Urine mei catheter Urine Culture - Preliminary NO GROWTH AT 24 HOURS 10/26/18 03:10 Venous blood - Right Hand Blood Culture - Preliminary Specimen has been received and culture in progress. No Growth to date. 10/26/18 03:05 Venous blood - Left Arm Blood Culture - Preliminary Enterococcus faecalis Coagulase Neg Staphylococcus 12/27/17 07:00 Venous blood - Right Arm Blood Culture - Preliminary Gram Positive Cocci 12/27/17 07:00 Venous blood - Right Arm Blood Culture - Preliminary Coagulase Neg Staphylococcus 12/27/17 06:38 Venous blood - Right Arm Blood Culture - Preliminary Staphylococcus species 12/27/17 06:38 Venous blood - Right Arm Blood Culture - Preliminary Gram Positive Cocci Laboratory Tests 12/27/17 12/27/17 12/27/17 06:38 07:01 07:01 Hgb Band Neuts % (Manual) Sodium 134 L Potassium Lactic Acid Troponin I 0.073 H B-Natriuretic Peptide 45.0 0212/27/17 10/26/18 10:10 13:21 06:47 Hgb 12.1 L Band Neuts % (Manual) 33 H Sodium Potassium Lactic Acid Troponin I 0.126 H 0.118 H B-Natriuretic Peptide 10/26/18 10/26/18 10/26/18 06:47 06:47 06:47 Hgb Band Neuts % (Manual) Sodium Potassium 3.9 Lactic Acid 1.4 Troponin I 0.371 H* B-Natriuretic Peptide 10/26/18 10/26/18 10/27/18 10:23 13:57 05:18 Hgb Band Neuts % (Manual) 38 H Sodium Potassium Lactic Acid Troponin I 0.317 H* 0.232 H B-Natriuretic Peptide Phys Exam - Physical Examination alert, tracks appropriately, aphasic HEENT: PERRLA, oral pharynx no lesions Neck: no nodes, no JVD, supple, full ROM coarse sounds bilat, diminished in bases S1, S2 Cardiovascular: RRR, no significant murmur, no rub, gallop PEG in place Gastrointestinal: soft, no distention, positive bowel sounds Musculoskeletal: no edema, pulses present R hemiparesis, aphasic moves LUE Skin: normal turgor, cap refill <2 seconds Deviation from normal: Mei catheter with large sediment, blood clots Dx/Plan (1) Aspiration pneumonia due to regurgitated gastric secretions Code(s): J69.0 - PNEUMONITIS DUE TO INHALATION OF FOOD AND VOMIT Status: Acute Qualifiers: Comment: Continue Vancomycin/Zosyn, suction prn, Duonebs, O2 supplementation, aspiration precautions (2) Sepsis due to pneumonia Code(s): J18.9 - PNEUMONIA, UNSPECIFIED ORGANISM; A41.9 - SEPSIS, UNSPECIFIED ORGANISM Status: Acute Comment: Blood cx with Enterococcus/MRSE spp, continue Vanc/Zosyn, await final sensitivities (3) Ileus Code(s): K56.7 - ILEUS, UNSPECIFIED Status: Acute Comment: Improved, likely resume TF's in 24h (4) Elevated troponin I level Code(s): R74.8 - ABNORMAL LEVELS OF OTHER SERUM ENZYMES Status: Acute Comment: Demand ischemic state, no ACS (5) DAVID (acute kidney injury) Code(s): N17.9 - ACUTE KIDNEY FAILURE, UNSPECIFIED Status: Acute Comment: Improved with IVF's, avoid nephrotoxic meds and limit contrast exposure - Plan plan discussed w/ family, continue antibiotics, PT/OT, social worker, speech therapy, respiratory therapy, DVT proph w/SCDs Stable currently -: Continue Vanc/Zosyn -: Duonebs q4h -: Hold TF's another 24h -: AM lab: BMP, CBC * .
[2018-10-27] MEDS: Finasteride 5 MG TAB FS SCH (20:49)
[2018-10-27] MEDS: traZODone HCl 50 MG TAB PER TUBE SCH (20:49)
[2018-10-28] MEDS: Piperacillin/Tazobactam 3.375 GM in Sodium Chloride 0.9% 100 ML IVPB SCH ×5 (00:07→23:55)
[2018-10-28] MEDS: Sodium Chloride 0.9% 1,000 ML IV SCH ×2 (00:10→15:39)
[2018-10-28] MEDS: Simethicone Chewable 80 MG TAB PER TUBE SCH ×3 (04:56→19:55)
[2018-10-28 05:37] LABS: Vancomycin, Trough 17.5 ug/mL
[2018-10-28 05:38] LABS: Band 16 % (5-11); Eosinophils 3 % (0-10); Hemoglobin 10.3 g/dL (14.0-18.0); Lymphocytes 21 % (21-51); MDiff Complete? YES; Mean Corpuscular HGB CONC 32.4 g/dL (32.0-36.0); Mean Corpuscular Volume 98.7 fL (78.0-98.0); Mean Platelet Volume 10.5 fL (7.4-10.4); Monocytes 10 % (0-10); Neutrophil 50 % (42-75); Platelet Count 139 thou/uL (130-400); RBC Distribution Width 12.3 % (11.5-14.5); Red Blood Cell (RBC) Count 3.23 mill/uL (4.70-6.10)
[2018-10-28 05:45] LABS: Anion Gap 12 mmol/L (10-20); BUN (Urea Nitrogen) 31 mg/dL (8.4-25.7); Calc. Creatinine Clearance 79 mL/min (70-130); Calcium 8.7 mg/dL (7.8-10.44); Carbon Dioxide 21 mmol/L (23-31); Chloride 115 mmol/L (98-107); Estimated GFR-MDRD Greater than 90; Glucose 85 mg/dL (83-110); Sodium 145 mmol/L (136-145)
[2018-10-28] MEDS: Vancomycin HCl 1 GM in Premix Bag 1 BAG IVPB SCH ×2 (05:46→17:41)
[2018-10-28] MEDS: Polyethylene Glycol 3350 17 GM Packet PER TUBE SCH (10:03)
[2018-10-28] MEDS: Famotidine 40 MG/5 ML Oral Suspension PER TUBE SCH ×2 (10:03→19:55)
[2018-10-28] MEDS: Lactinex Tablet PO SCH (10:04)
[2018-10-28] MEDS: Potassium Chloride 20 MEQ TAB PO SCH (10:04)
[2018-10-28] MEDS: Clotrimazole 1 % Cream 30 GM TUBE TOP SCH ×2 (10:05→19:54)
[2018-10-28] MEDS: Artificial Tear Sol 15 ML BOT EA EYE SCH ×2 (10:05→19:54)
[2018-10-28] MEDS: Multivitamin W/ Minerals 1 TAB PER TUBE SCH (10:29)
--- NOTE | 2018-10-28 16:07 | PDOC.PN ---
- Subjective Encounter Start Date: 10/28/18 Encounter Start Time: 16:00 Subjective: f/u for aspiration pna, sepsis on Zosyn/Vanc. Some improvement per -: but still sounds coarse. TF's held since admit. - Objective Resuscitation Status - Order Detail: 10/26/18 15:43 Resuscitation Status Routine Resuscitation Status: DNAR: NO Resuscitation Discussed with: Confirmed with MARK Reviewed: Yes Vital Signs & Weight: Vital Signs (12 hours) Temp Pulse Resp BP Pulse Ox 10/28/18 14:23 90 16 10/28/18 10:47 80 16 10/28/18 08:00 100 10/28/18 07:12 99.2 F 66 20 125/67 100 10/28/18 07:08 71 18 Weight Admit Weight 154 lb 4.8 oz Weight 154 lb 5 oz I&O: 10/27/18 10/28/18 10/29/18 06:59 06:59 06:59 Intake Total 1400 Output Total 700 Balance 700 Result Diagrams: 10/28/18 04:28 10/28/18 04:28 Additional Labs: Microbiology 10/26/18 03:30 Urine mei catheter Urine Culture - Preliminary NO GROWTH AT 24 HOURS 10/26/18 03:10 Venous blood - Right Hand Blood Culture - Preliminary Specimen has been received and culture in progress. No Growth to date. 10/26/18 03:05 Venous blood - Left Arm Blood Culture - Preliminary Enterococcus faecalis Coagulase Neg Staphylococcus 12/27/17 07:00 Venous blood - Right Arm Blood Culture - Preliminary Gram Positive Cocci 12/27/17 07:00 Venous blood - Right Arm Blood Culture - Preliminary Coagulase Neg Staphylococcus 12/27/17 06:38 Venous blood - Right Arm Blood Culture - Preliminary Staphylococcus species 12/27/17 06:38 Venous blood - Right Arm Blood Culture - Preliminary Gram Positive Cocci Laboratory Tests 12/27/17 12/27/17 12/27/17 06:38 07:01 07:01 Hgb Band Neuts % (Manual) Sodium 134 L Potassium Lactic Acid Troponin I 0.073 H B-Natriuretic Peptide 45.0 12/27/17 12/27/17 10/26/18 10:10 13:21 06:47 Hgb 12.1 L Band Neuts % (Manual) 33 H Sodium Potassium Lactic Acid Troponin I 0.126 H 0.118 H B-Natriuretic Peptide 12/10/18 12/10/18 12/10/18 06:47 06:47 06:47 Hgb Band Neuts % (Manual) Sodium Potassium 3.9 Lactic Acid 1.4 Troponin I 0.371 H* B-Natriuretic Peptide 10/26/18 10/26/18 10/27/18 10:23 13:57 05:18 Hgb Band Neuts % (Manual) 38 H Sodium Potassium Lactic Acid Troponin I 0.317 H* 0.232 H B-Natriuretic Peptide Phys Exam - Physical Examination alert, tracks with eyes, aphasic HEENT: PERRLA, sclera anicteric, oral pharynx no lesions Neck: no nodes, no JVD, supple, full ROM coarse sounds bilat Respiratory: no wheezing S1, S2 Cardiovascular: RRR, no significant murmur, no rub, gallop PEG in place Gastrointestinal: soft, non-tender, no distention, positive bowel sounds Musculoskeletal: no edema, pulses present R hemiparesis, aphasic Skin: normal turgor, cap refill <2 seconds Deviation from normal: Mei with brown urine Dx/Plan (1) Aspiration pneumonia due to regurgitated gastric secretions Code(s): J69.0 - PNEUMONITIS DUE TO INHALATION OF FOOD AND VOMIT Status: Acute Qualifiers: Comment: Continue Vancomycin/Zosyn, suction prn, Duonebs, O2 supplementation, aspiration precautions (2) Sepsis due to pneumonia Code(s): J18.9 - PNEUMONIA, UNSPECIFIED ORGANISM; A41.9 - SEPSIS, UNSPECIFIED ORGANISM Status: Acute Comment: Blood cx with Enterococcus/MRSE spp, continue Vanc/Zosyn, await final sensitivities (3) Ileus Code(s): K56.7 - ILEUS, UNSPECIFIED Status: Acute Comment: Improved, resume TF's at 1/2 the amount for first 24h then titrate to clinical response (4) Elevated troponin I level Code(s): R74.8 - ABNORMAL LEVELS OF OTHER SERUM ENZYMES Status: Acute Comment: Demand ischemic state, no ACS (5) DAVID (acute kidney injury) Code(s): N17.9 - ACUTE KIDNEY FAILURE, UNSPECIFIED Status: Acute Comment: Improved with IVF's, avoid nephrotoxic meds and limit contrast exposure - Plan plan discussed w/ family, continue antibiotics, PT/OT, manager social, speech therapy, respiratory therapy, DVT proph w/SCDs Continue Vanc/Zosyn -: Pulmonary support with Duonebs, O2 prn -: Resume TF's at 1/2 the volume for first 24h -: Continue IVF's 100ml/h -: KCL 40meq PT BID * AM lab: BMP, CBC, Mg++
[2018-10-28] MEDS: Finasteride 5 MG TAB FS SCH (19:54)
[2018-10-28] MEDS: traZODone HCl 50 MG TAB PER TUBE SCH (19:54)
[2018-10-29] MEDS: Sodium Chloride 0.9% 1,000 ML IV SCH ×3 (05:10→23:30)
[2018-10-29] MEDS: Piperacillin/Tazobactam 3.375 GM in Sodium Chloride 0.9% 100 ML IVPB SCH ×3 (05:12→16:17)
[2018-10-29] MEDS: Simethicone Chewable 80 MG TAB PER TUBE SCH ×3 (05:12→21:32)
[2018-10-29] MEDS: Vancomycin HCl 1 GM in Premix Bag 1 BAG IVPB SCH ×2 (05:12→17:30)
[2018-10-29 06:13] LABS: Anion Gap 10 mmol/L (10-20); BUN (Urea Nitrogen) 21 mg/dL (8.4-25.7); Calc. Creatinine Clearance 80 mL/min (70-130); Calcium 8.8 mg/dL (7.8-10.44); Carbon Dioxide 21 mmol/L (23-31); Chloride 117 mmol/L (98-107); Estimated GFR-MDRD Greater than 90; Glucose 82 mg/dL (83-110); Magnesium 1.9 mg/dL (1.6-2.6); Potassium 3.2 mmol/L (3.5-5.1); Sodium 145 mmol/L (136-145)
[2018-10-29 06:19] LABS: Band 3 % (5-11); Hemoglobin 10.1 g/dL (14.0-18.0); Hypochromia SLIGHT = 6-15 cells (100X) (0-5/hpf); Lymphocytes 11 % (21-51); MDiff Complete? YES; Mean Corpuscular HGB CONC 33.1 g/dL (32.0-36.0); Mean Corpuscular Hemoglobin 32.1 pg (27.0-31.0); Mean Corpuscular Volume 97.1 fL (78.0-98.0); Mean Platelet Volume 10.2 fL (7.4-10.4); Monocytes 4 % (0-10); Neutrophil 82 % (42-75); PLT Morphology Comment Appears Adequate; Platelet Count 135 thou/uL (130-400); RBC Distribution Width 12.3 % (11.5-14.5); Red Blood Cell (RBC) Count 3.15 mill/uL (4.70-6.10); White Blood Cell (WBC) Count 7.8 thou/uL (4.8-10.8)
[2018-10-29] MEDS: Famotidine 40 MG/5 ML Oral Suspension PER TUBE SCH ×2 (08:30→21:31)
[2018-10-29] MEDS: Lactinex Tablet PO SCH (08:30)
[2018-10-29] MEDS: Multivitamin W/ Minerals 1 TAB PER TUBE SCH (08:30)
[2018-10-29] MEDS: Polyethylene Glycol 3350 17 GM Packet PER TUBE SCH (08:30)
[2018-10-29] MEDS: Clotrimazole 1 % Cream 30 GM TUBE TOP SCH ×2 (08:30→21:32)
[2018-10-29] MEDS: Artificial Tear Sol 15 ML BOT EA EYE SCH ×2 (08:31→21:32)
--- NOTE | 2018-10-29 13:24 | PQF ---
DATE: 10-29-18 ATTN: DR. EDIN HUBBARD Please exercise your independent, professional judgment in responding to the clarification form. Clinical indicators are provided on the bottom of this form for your review Please check appropriate box(s): [ ] AMI Type 2 [ x ] Demand Ischemia [ ] Other diagnosis [ ] Unable to determine In addition, please specify: Present on Admission (POA): [x ] Yes [ ] No [ ] Unable to determine CLINICAL INDICATORS - SIGNS / SYMPTOMS / LABS H&P DR. LAMBERT 10-26-18: HE HAS BEEN EVALUATED AND FOUND TO HAVE AN ASPIRATION PNEUMONIA, STEMI, AND A COLONIC ILEUS. H&P: DR. HUBBARD 10-26-18: ELEVATED TROP I. SUSPECT DEMAND ISCHEMIC STATE N THE CONTEXT OF ASPIRATION PNEUMONIA AND SEPSIS. ER DX: SIGMOID VOLVULUS, NSTEMI,PNEUMONIA, SEPSIS ER: VOMITING AND SOB TROPONIN I: 10-26-18: 0.371, 0.317, 0232 RISKS: ER: HX HTN, CVA, HYPERLIPIDEMIA, ANEMIA, GERD, BPH, DEMENTIA TREATMENTS: RT ASSESSMENT 10-27-18: O2 2-5 L NC (This form is maintained as a part of the permanent medical record) 2014 [employer] All Rights Reserved NICOLE [email or web address] Office: [phone] FALGUNI
--- NOTE | 2018-10-29 14:22 | PDOC.PN ---
- Subjective Encounter Start Date: 10/29/18 Encounter Start Time: 14:15 Subjective: f/u for aspiration pneumonia and sepsis currently receiving Vanc/ Zosyn -: Less SOB per family report. Tolerating low-volume TF's - Objective Resuscitation Status - Order Detail: 10/26/18 15:43 Resuscitation Status Routine Resuscitation Status: DNAR: NO Resuscitation Discussed with: Confirmed with MARK Reviewed: Yes Vital Signs & Weight: Vital Signs (12 hours) Temp Pulse Resp BP Pulse Ox 10/29/18 14:00 63 14 10/29/18 11:56 99 F 71 18 98 10/29/18 10:39 72 16 10/29/18 07:00 100.4 F H 73 17 120/63 100 10/29/18 06:50 70 20 Weight Admit Weight 154 lb 4.8 oz Weight 154 lb 5 oz I&O: 10/28/18 10/29/18 10/30/18 06:59 06:59 06:59 Intake Total 1400 60 280 Output Total 700 1000 Balance 700 -940 280 Result Diagrams: 10/29/18 05:00 10/29/18 05:00 Additional Labs: Microbiology 10/26/18 03:30 Urine mei catheter Urine Culture - Final NO GROWTH AT 48 HOURS 10/26/18 03:05 Venous blood - Left Arm Blood Culture - Final Enterococcus faecalis Coagulase Neg Staphylococcus 10/26/18 03:10 Venous blood - Right Hand Blood Culture - Preliminary NO GROWTH AT 48 HOURS Laboratory Tests 10/26/18 10/26/18 10/26/18 06:47 10:23 13:57 Potassium Troponin I 0.371 H* 0.317 H* 0.232 H Vancomycin Trough 10/27/18 10/28/18 10/28/18 05:18 04:28 04:28 Potassium 3.3 L 3.0 L Troponin I Vancomycin Trough 17.5 Phys Exam - Physical Examination opens eyes to name, aphasic HEENT: PERRLA, sclera anicteric, oral pharynx no lesions Neck: no nodes, no JVD, supple, full ROM coarse sounds bilat S1, S2 Cardiovascular: RRR, no significant murmur, no rub, gallop PEG in place Gastrointestinal: soft, non-tender, no distention, positive bowel sounds Musculoskeletal: no edema, pulses present R hemiparesis, expressive aphasic Skin: normal turgor, cap refill <2 seconds Dx/Plan (1) Aspiration pneumonia due to regurgitated gastric secretions Code(s): J69.0 - PNEUMONITIS DUE TO INHALATION OF FOOD AND VOMIT Status: Acute Qualifiers: Comment: Continue Vancomycin/Zosyn, suction prn, Duonebs, O2 supplementation, aspiration precautions (2) Sepsis due to pneumonia Code(s): J18.9 - PNEUMONIA, UNSPECIFIED ORGANISM; A41.9 - SEPSIS, UNSPECIFIED ORGANISM Status: Acute Comment: Blood cx with Enterococcus/MRSE spp, continue Vanc/Zosyn, await final sensitivities (3) Ileus Code(s): K56.7 - ILEUS, UNSPECIFIED Status: Acute Comment: Improved, resume TF's at 1/2 the amount for first 24h then titrate to clinical response (4) DAVID (acute kidney injury) Code(s): N17.9 - ACUTE KIDNEY FAILURE, UNSPECIFIED Status: Acute Comment: Improved with IVF's, avoid nephrotoxic meds and limit contrast exposure (5) Demand ischemia Code(s): I24.8 - OTHER FORMS OF ACUTE ISCHEMIC HEART DISEASE Status: Acute Comment: Med mgmt, no acute intervention - Plan plan discussed w/ family, continue antibiotics, PT/OT, nursing home social worker, respiratory therapy, DVT proph w/SCDs Stable currently -: Continue Vancomycin/Zosyn -: Suction upper airway PRN -: Duonebs q4h prn -: Bolus TF's up to 4-5 cans/day * KCL 40meq BID
[2018-10-29 16:57] LABS: Vancomycin, Trough 20.7 ug/mL
[2018-10-29] MEDS: traZODone HCl 50 MG TAB PER TUBE SCH (21:30)
[2018-10-29] MEDS: Finasteride 5 MG TAB FS SCH (21:31)
[2018-10-30] MEDS: Piperacillin/Tazobactam 3.375 GM in Sodium Chloride 0.9% 100 ML IVPB SCH ×4 (00:03→16:45)
[2018-10-30] MEDS: Vancomycin HCl 1 GM in Premix Bag 1 BAG IVPB SCH ×2 (04:46→17:35)
[2018-10-30] MEDS: Simethicone Chewable 80 MG TAB PER TUBE SCH ×3 (06:20→21:59)
[2018-10-30] MEDS: Polyethylene Glycol 3350 17 GM Packet PER TUBE SCH (09:05)
[2018-10-30] MEDS: Artificial Tear Sol 15 ML BOT EA EYE SCH ×2 (09:05→22:00)
[2018-10-30] MEDS: Lactinex Tablet PO SCH (09:05)
[2018-10-30] MEDS: Multivitamin W/ Minerals 1 TAB PER TUBE SCH (09:05)
[2018-10-30] MEDS: Famotidine 40 MG/5 ML Oral Suspension PER TUBE SCH ×2 (09:05→21:59)
[2018-10-30] MEDS: Clotrimazole 1 % Cream 30 GM TUBE TOP SCH ×2 (09:06→22:00)
[2018-10-30] MEDS: Sodium Chloride 0.9% 1,000 ML IV SCH ×2 (11:33→13:20)
--- NOTE | 2018-10-30 13:07 | PDOC.PN ---
- Subjective Encounter Start Date: 10/30/18 Encounter Start Time: 12:50 Subjective: f/u for aspiration pna on current Vanc/Zosyn with low-grade temp -: spikes. Overall looking better to but still with coughing. -: Tolerating current TF's. - Objective Resuscitation Status - Order Detail: 10/26/18 15:43 Resuscitation Status Routine Resuscitation Status: DNAR: NO Resuscitation Discussed with: Confirmed with MAR Reviewed: Yes Vital Signs & Weight: Vital Signs (12 hours) Temp Pulse Resp BP Pulse Ox 10/30/18 09:34 72 24 H 96 10/30/18 07:25 99.1 F 70 24 H 156/64 H 98 10/30/18 06:39 99.5 F 99 10/30/18 01:30 99.7 F H Weight Admit Weight 154 lb 4.8 oz Weight 154 lb 5 oz I&O: 10/29/18 10/30/18 10/31/18 06:59 06:59 06:59 Intake Total 60 1180 340 Output Total 1000 1000 Balance -940 180 340 Result Diagrams: 10/29/18 05:00 10/29/18 05:00 Additional Labs: Microbiology 10/26/18 03:30 Urine mei catheter Urine Culture - Final NO GROWTH AT 48 HOURS 10/26/18 03:05 Venous blood - Left Arm Blood Culture - Final Enterococcus faecalis Coagulase Neg Staphylococcus 10/26/18 03:10 Venous blood - Right Hand Blood Culture - Preliminary NO GROWTH AT 48 HOURS Laboratory Tests 10/26/18 10/26/18 10/26/18 06:47 10:23 13:57 Potassium Troponin I 0.371 H* 0.317 H* 0.232 H Vancomycin Trough 10/27/18 10/28/18 10/28/18 05:18 04:28 04:28 Potassium 3.3 L 3.0 L Troponin I Vancomycin Trough 17.5 Phys Exam - Physical Examination Constitutional: NAD smiles, alert HEENT: PERRLA, sclera anicteric, oral pharynx no lesions Neck: no nodes, no JVD, supple, full ROM coarse sounds bilat Respiratory: no wheezing S1, S2 Cardiovascular: RRR, no significant murmur, no rub, gallop +PEG in place Gastrointestinal: soft, non-tender, no distention, positive bowel sounds Musculoskeletal: no edema, pulses present R hemiparesis, aphasic Skin: normal turgor, cap refill <2 seconds Deviation from normal: Mei with carlos urine, clearing Dx/Plan (1) Aspiration pneumonia due to regurgitated gastric secretions Code(s): J69.0 - PNEUMONITIS DUE TO INHALATION OF FOOD AND VOMIT Status: Acute Qualifiers: Comment: Continue Vancomycin/Zosyn, suction prn, Duonebs, O2 supplementation, aspiration precautions, add Clindamycin 900mg IV q8h, chest physiotherapy TID (2) Sepsis due to pneumonia Code(s): J18.9 - PNEUMONIA, UNSPECIFIED ORGANISM; A41.9 - SEPSIS, UNSPECIFIED ORGANISM Status: Acute Comment: Blood cx with Enterococcus/MRSE spp, continue Vanc/Zosyn, await final sensitivities (3) Ileus Code(s): K56.7 - ILEUS, UNSPECIFIED Status: Acute Comment: Improved, resume TF's at 1/2 the amount for first 24h then titrate to clinical response (4) DAVID (acute kidney injury) Code(s): N17.9 - ACUTE KIDNEY FAILURE, UNSPECIFIED Status: Acute Comment: Improved with IVF's, avoid nephrotoxic meds and limit contrast exposure (5) Demand ischemia Code(s): I24.8 - OTHER FORMS OF ACUTE ISCHEMIC HEART DISEASE Status: Acute Comment: Med mgmt, no acute intervention - Plan plan discussed w/ family, continue antibiotics, 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
[2018-10-30] MEDS: Clindamycin/D5W 900 MG in Premix Bag 1 BAG IVPB SCH ×2 (13:57→21:57)
[2018-10-30] MEDS: traZODone HCl 50 MG TAB PER TUBE SCH (21:58)
[2018-10-30] MEDS: Finasteride 5 MG TAB FS SCH (21:59)
[2018-10-31] MEDS: Piperacillin/Tazobactam 3.375 GM in Sodium Chloride 0.9% 100 ML IVPB SCH ×4 (00:17→17:22)
[2018-10-31] MEDS: Vancomycin HCl 750 MG in Sodium Chloride 0.9% 250 ML 250 ML IVPB SCH ×2 (04:59→17:16)
[2018-10-31 05:22] LABS: Anion Gap 12 mmol/L (10-20); BUN (Urea Nitrogen) 12 mg/dL (8.4-25.7); Calc. Creatinine Clearance 85 mL/min (70-130); Calcium 8.5 mg/dL (7.8-10.44); Carbon Dioxide 21 mmol/L (23-31); Chloride 116 mmol/L (98-107); Estimated GFR-MDRD Greater than 90; Glucose 134 mg/dL (83-110); Potassium 3.5 mmol/L (3.5-5.1); Sodium 145 mmol/L (136-145)
[2018-10-31 05:33] LABS: Band 7 % (5-11); Eosinophils 2 % (0-10); Hemoglobin 9.8 g/dL (14.0-18.0); Lymphocytes 10 % (21-51); MDiff Complete? YES; Mean Corpuscular HGB CONC 32.6 g/dL (32.0-36.0); Mean Corpuscular Hemoglobin 31.8 pg (27.0-31.0); Mean Corpuscular Volume 97.3 fL (78.0-98.0); Mean Platelet Volume 10.3 fL (7.4-10.4); Monocytes 11 % (0-10); Neutrophil 70 % (42-75); PLT Morphology Comment Appears Adequate; Platelet Count 136 thou/uL (130-400); RBC Distribution Width 12.2 % (11.5-14.5); RBC Morphology Normal; White Blood Cell (WBC) Count 6.9 thou/uL (4.8-10.8)
[2018-10-31] MEDS: Clindamycin/D5W 900 MG in Premix Bag 1 BAG IVPB SCH ×3 (06:35→21:13)
[2018-10-31] MEDS: Simethicone Chewable 80 MG TAB PER TUBE SCH ×3 (06:36→21:14)
[2018-10-31] MEDS: Multivitamin W/ Minerals 1 TAB PER TUBE SCH (08:26)
[2018-10-31] MEDS: Lactinex Tablet PO SCH (08:26)
[2018-10-31] MEDS: Artificial Tear Sol 15 ML BOT EA EYE SCH ×2 (08:27→21:16)
[2018-10-31] MEDS: Polyethylene Glycol 3350 17 GM Packet PER TUBE SCH (08:29)
[2018-10-31] MEDS: Famotidine 40 MG/5 ML Oral Suspension PER TUBE SCH ×2 (09:53→21:14)
--- NOTE | 2018-10-31 10:20 | PDOC.PN ---
- Subjective Encounter Start Date: 10/31/18 Encounter Start Time: 07:50 -: old records requested/rev Patient seen and examined. No overnight events overall stable, he still has gurgling sound in chest - Objective Resuscitation Status - Order Detail: 10/26/18 15:43 Resuscitation Status Routine Resuscitation Status: DNAR: NO Resuscitation Discussed with: Confirmed with MARK Reviewed: Yes Vital Signs & Weight: Vital Signs (12 hours) Temp Pulse Resp BP Pulse Ox 10/31/18 08:00 98.6 F 71 24 H 120/69 100 10/31/18 06:59 95 10/31/18 06:52 71 18 97 10/31/18 06:30 71 18 100 Weight Admit Weight 154 lb 4.8 oz Weight 154 lb 5 oz I&O: 10/30/18 10/31/18 11/01/18 06:59 06:59 06:59 Intake Total 1180 2645 1285 Output Total 1000 850 550 Balance 180 1795 735 Result Diagrams: 10/31/18 04:35 10/31/18 04:35 Phys Exam - Physical Examination Constitutional: NAD HEENT: PERRLA, moist MMs, sclera anicteric Neck: no JVD, supple coarse sound bilateral Cardiovascular: RRR, no significant murmur, no rub Gastrointestinal: soft, positive bowel sounds PEG+ Musculoskeletal: no edema, pulses present residual aphasia, weakness, dysphagia Lymphatic: no nodes Psychiatric: normal affect Skin: no rash, normal turgor Dx/Plan (1) DAVID (acute kidney injury) Code(s): N17.9 - ACUTE KIDNEY FAILURE, UNSPECIFIED Status: Resolved Comment : (2) Aspiration pneumonia due to regurgitated gastric secretions Code(s): J69.0 - PNEUMONITIS DUE TO INHALATION OF FOOD AND VOMIT Status: Acute Qualifiers: Comment: Continue Vancomycin/Zosyn, suction prn, Duonebs, O2 supplementation, aspiration precautions, add Clindamycin 900mg IV q8h, chest physiotherapy TID (3) Demand ischemia Code(s): I24.8 - OTHER FORMS OF ACUTE ISCHEMIC HEART DISEASE Status: Acute Comment: Med mgmt, no acute intervention (4) Ileus Code(s): K56.7 - ILEUS, UNSPECIFIED Status: Resolved Comment: Improved, resume TF's (5) Sepsis due to pneumonia Code(s): J18.9 - PNEUMONIA, UNSPECIFIED ORGANISM; A41.9 - SEPSIS, UNSPECIFIED ORGANISM Status: Acute Comment: Blood cx with Enterococcus/MRSE spp, continue Vanc/Zosyn/clindamycin, (6) BPH (benign prostatic hyperplasia) Code(s): N40.0 - BENIGN PROSTATIC HYPERPLASIA WITHOUT LOWER URINRY TRACT SYMP Status: Chronic (7) CVA, old, aphasia Code(s): I69.320 - APHASIA FOLLOWING CEREBRAL INFARCTION Status: Chronic Comment: with chronic dysphagia, R hemiparesis and bed bound status (8) GERD (gastroesophageal reflux disease) Code(s): K21.9 - GASTRO-ESOPHAGEAL REFLUX DISEASE WITHOUT ESOPHAGITIS Status: Chronic Comment: Pepcid 20mg BID (9) Hypertension Code(s): I10 - ESSENTIAL (PRIMARY) HYPERTENSION Status: Chronic (10) PEG (percutaneous endoscopic gastrostomy) status Code(s): Z93.1 - GASTROSTOMY STATUS Status: Chronic Comment: Resume Jevity 1.5 bolus feeds per dietary recs - Plan cont current plan of care, 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 Review of Systems - Review of Systems Other: not reliable due to baseline cognitive deficit - Medications/Allergies Allergies/Adverse Reactions: Allergies Allergy/AdvReac Type Severity Reaction Status Date / Time No Known Allergies Allergy Verified 06/12/18 00:42 Medications: Current Medications Acidophilus (Floranex) 1 tab PO DAILY [facility] [place] Last Admin: 10/31/18 08:26 Dose: 1 tab Albuterol/Ipratropium (Duoneb) 3 ml NEB [id number] [facility] [place] Last Admin: 10/31/18 06:52 Dose: 3 ml Artificial Tears (Tears Renewed 15ml Bottle) 1 - 2 drop EA EYE BID [facility] Last Admin: 10/31/18 08:27 Dose: 1 drop Bisacodyl (Dulcolax) 10 mg ME Q24H PRN PRN Reason: Constipation Clotrimazole (Lotrimin 1% Cream) 0 gm TOP BID [facility] Last Admin: 10/30/18 22:00 Dose: 1 applic Famotidine (Pepcid) 40 mg PER TUBE BID [facility] Last Admin: 10/31/18 09:53 Dose: 40 mg Finasteride (Proscar) 5 mg FS HS [facility] [place] Last Admin: 10/30/18 21:59 Dose: 5 mg Guaifenesin (Robitussin Sf) 200 mg PER TUBE Q4H PRN PRN Reason: Cough Hyoscyamine Sulfate (Levsin) 0.125 mg PER TUBE BID [facility] [place] Last Admin: 10/31/18 08:26 Dose: 0.125 mg Piperacillin Sod/Tazobactam (Sod 3.375 gm/ Sodium Chloride) 100 mls @ 200 mls/ hr IVPB Q6HR [facility] [place] Last Admin: 10/31/18 06:36 Dose: 100 mls Clindamycin Phosphate/Dextrose (900 mg/ Device) 50 mls @ 100 mls/hr IVPB Q8HR [facility] Last Admin: 10/31/18 06:35 Dose: 50 mls Sodium Chloride (Normal Saline 0.9%) 1,000 mls @ 50 mls/hr IV .Q20H [facility] [place] Last Admin: 10/30/18 13:20 Dose: Not Given Vancomycin HCl 750 mg/ Sodium (Chloride) 250 mls @ 250 mls/hr IVPB 0500,1700 [facility] [place] Last Admin: 10/31/18 04:59 Dose: 250 mls Iron/Minerals/Multivitamins (Theragran M) 1 tab PER TUBE DAILY [facility] [place] Last Admin: 10/31/18 08:26 Dose: 1 tab Miscellaneous Medication (Pharmacy To Dose) 0 each IVPB PRN PRN PRN Reason: VANC Pharmacy to Dose Ondansetron HCl (Zofran Odt) 4 mg PER TUBE Q6H PRN PRN Reason: Nausea/Vomiting Ondansetron HCl (Zofran) 4 mg IVP Q6H PRN PRN Reason: Nausea/Vomiting Polyethylene Glycol (Miralax) 17 gm PER TUBE DAILY [facility] Last Admin: 10/31/18 08:29 Dose: 17 gm Potassium Chloride (Klor-Con) 40 meq PER TUBE BID-WM [facility] Last Admin: 10/31/18 08:26 Dose: 40 meq Senna/Docusate Sodium (Senokot S) 2 tab PER TUBE BID PRN PRN Reason: Constipation Sertraline HCl (Zoloft) 50 mg PER TUBE [facility] Last Admin: 10/30/18 21:59 Dose: 50 mg Simethicone (Mylicon Chewable) 80 mg PER TUBE Q8HR [facility] [place] Last Admin: 10/31/18 06:36 Dose: 80 mg Trazodone HCl (Desyrel) 25 mg PER TUBE HS [facility] [place] Last Admin: 10/30/18 21:58 Dose: 25 mg
[2018-10-31] MEDS: Sodium Chloride 0.9% 1,000 ML IV SCH (12:27)
[2018-10-31] MEDS: Clotrimazole 1 % Cream 30 GM TUBE TOP SCH ×2 (17:31→21:17)
[2018-10-31] MEDS: traZODone HCl 50 MG TAB PER TUBE SCH (21:14)
[2018-10-31] MEDS: Finasteride 5 MG TAB FS SCH (21:16)
[2018-11-01] MEDS: Piperacillin/Tazobactam 3.375 GM in Sodium Chloride 0.9% 100 ML IVPB SCH ×4 (00:43→16:47)
[2018-11-01] MEDS ORDERED: Pancrelipase DR 12000 1 CAP FS PRN (02:22)
[2018-11-01 04:29] LABS: Vancomycin, Trough 21.8 ug/mL
[2018-11-01] MEDS: Simethicone Chewable 80 MG TAB PER TUBE SCH ×3 (05:47→22:03)
[2018-11-01] MEDS: Clindamycin/D5W 900 MG in Premix Bag 1 BAG IVPB SCH ×3 (05:47→22:16)
[2018-11-01] MEDS: Sodium Chloride 0.9% 1,000 ML IV SCH (06:18)
[2018-11-01] MEDS ORDERED: Eucerin (Mineral Oil/Petrolatum,White) 30 gm Jar TOP PRN (07:49)
[2018-11-01] MEDS ORDERED: hydrALAZINE 20 MG/ML VIAL SLOW IVP PRN (07:49)
[2018-11-01] MEDS ORDERED: Sodium Chloride 0.65% Nasal 44 ML BOT EA NARE PRN (07:49)
[2018-11-01] MEDS ORDERED: Bisacodyl 10 MG SUPP PR PRN (07:49)
[2018-11-01] MEDS ORDERED: Cepastat Lozenges 1 LOZ PO PRN (07:49)
[2018-11-01] MEDS ORDERED: Loperamide HCl 2 MG CAP PER TUBE PRN (07:49)
[2018-11-01] MEDS ORDERED: Loratadine 10 MG TAB PER TUBE PRN (07:49)
[2018-11-01] MEDS ORDERED: Artificial Tears 18 DROP/0.9 ML EA EYE PRN (07:49)
[2018-11-01] MEDS: Lactinex Tablet PO SCH (08:13)
[2018-11-01] MEDS: Famotidine 40 MG/5 ML Oral Suspension PER TUBE SCH ×2 (08:13→22:02)
[2018-11-01] MEDS: Multivitamin W/ Minerals 1 TAB PER TUBE SCH (08:13)
[2018-11-01] MEDS: Clotrimazole 1 % Cream 30 GM TUBE TOP SCH ×2 (08:13→21:59)
[2018-11-01] MEDS: Polyethylene Glycol 3350 17 GM Packet PER TUBE SCH (08:13)
[2018-11-01] MEDS: Artificial Tear Sol 15 ML BOT EA EYE SCH ×2 (08:14→21:57)
[2018-11-01] MEDS: Saccharomyces boulardii 250 MG CAP PER TUBE SCH ×2 (08:16→22:00)
--- NOTE | 2018-11-01 08:33 | RAD ---
RADIOGRAPH CHEST 1 VIEW: Date: 11/01/2018. Time: 8:23 a.m. HISTORY: A 77-year-old male with pneumonia. COMPARISON: 10/26/2018. FINDINGS: Diffuse bilateral mixed interstitial and alveolar infiltrates, mostly interstitial, are again noted. These appear slightly worse, but that could be due to less exposed technique on the current study. There are small regions of alveolar confluence, for example at the right lower lung zone. Multiple o ld right rib fracture deformities are again noted. No pneumothorax. IMPRESSION: 1. Bilateral interstitial infiltrates. 2. Small regions of alveolar infiltrates in the right lung, apparently new or worse since the prior study. 3. Continued followup recommended. YASMIN [] POS: MEGHAN
[2018-11-01] MEDS ORDERED: Scopolamine 1.5 mg/72 hour Patch TD SCH (10:00)
[2018-11-01] MEDS: Vancomycin HCl 1.5 GM in Sodium Chloride 0.9% 250 ML 300 ML IVPB SCH (10:19)
--- NOTE | 2018-11-01 10:40 | PDOC.PN ---
- Subjective Encounter Start Date: 11/01/18 Encounter Start Time: 08:00 Patient seen and examined. No new complaints. No overnight events - Objective Resuscitation Status - Order Detail: 10/26/18 15:43 Resuscitation Status Routine Resuscitation Status: DNAR: NO Resuscitation Discussed with: Confirmed with MARK Reviewed: Yes Vital Signs & Weight: Vital Signs (12 hours) Temp Pulse Resp BP Pulse Ox 11/01/18 08:00 94 L 11/01/18 07:30 66 96 11/01/18 07:25 99.1 F 70 20 143/79 H 94 L Weight Admit Weight 154 lb 4.8 oz Weight 154 lb 5 oz I&O: 10/31/18 11/01/18 11/02/18 06:59 06:59 06:59 Intake Total 2645 3505 1560 Output Total 850 1550 1050 Balance 1795 1955 510 Result Diagrams: 10/31/18 04:35 10/31/18 04:35 Radiology Reviewed by me: Yes (chest xray reviewed) Phys Exam - Physical Examination Constitutional: NAD HEENT: PERRLA, sclera anicteric Neck: no nodes, supple, full ROM gurgle sound in throat Respiratory: no wheezing, no rhonchi coarse sound bilateral Cardiovascular: RRR, no significant murmur, no rub Gastrointestinal: soft, non-tender, no distention, positive bowel sounds PEG+ Musculoskeletal: no edema, pulses present residual weakness , aphasia, dysphagia Lymphatic: no nodes Psychiatric: normal affect Skin: no rash, normal turgor Dx/Plan (1) Aspiration pneumonia due to regurgitated gastric secretions Code(s): J69.0 - PNEUMONITIS DUE TO INHALATION OF FOOD AND VOMIT Status: Acute Qualifiers: Comment: Continue Vancomycin/Zosyn, suction prn, Duonebs, O2 supplementation, aspiration precautions, add Clindamycin 900mg IV q8h, chest physiotherapy TID (2) DAVID (acute kidney injury) Code(s): N17.9 - ACUTE KIDNEY FAILURE, UNSPECIFIED Status: Resolved Comment : (3) Demand ischemia Code(s): I24.8 - OTHER FORMS OF ACUTE ISCHEMIC HEART DISEASE Status: Acute Comment: Med mgmt, no acute intervention (4) Ileus Code(s): K56.7 - ILEUS, UNSPECIFIED Status: Resolved Comment: Improved, resume TF's (5) Sepsis due to pneumonia Code(s): J18.9 - PNEUMONIA, UNSPECIFIED ORGANISM; A41.9 - SEPSIS, UNSPECIFIED ORGANISM Status: Acute Comment: Blood cx with Enterococcus/MRSE spp, continue Vanc/Zosyn/clindamycin, (6) BPH (benign prostatic hyperplasia) Code(s): N40.0 - BENIGN PROSTATIC HYPERPLASIA WITHOUT LOWER URINRY TRACT SYMP Status: Chronic (7) CVA, old, aphasia Code(s): I69.320 - APHASIA FOLLOWING CEREBRAL INFARCTION Status: Chronic Comment: with chronic dysphagia, R hemiparesis and bed bound status (8) GERD (gastroesophageal reflux disease) Code(s): K21.9 - GASTRO-ESOPHAGEAL REFLUX DISEASE WITHOUT ESOPHAGITIS Status: Chronic Comment: Pepcid 20mg BID (9) Hypertension Code(s): I10 - ESSENTIAL (PRIMARY) HYPERTENSION Status: Chronic (10) PEG (percutaneous endoscopic gastrostomy) status Code(s): Z93.1 - GASTROSTOMY STATUS Status: Chronic Comment: Resume Jevity 1.5 bolus feeds per dietary recs - Plan cont current plan of care, mei catheter, continue antibiotics, 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 Review of Systems - Review of Systems Other: not reliable due to pt's baseline aphasia and cognitive deficit - Medications/Allergies Allergies/Adverse Reactions: Allergies Allergy/AdvReac Type Severity Reaction Status Date / Time No Known Allergies Allergy Verified 06/12/18 00:42 Medications: Current Medications Acidophilus (Floranex) 1 tab PO DAILY [facility] [place] Last Admin: 11/01/18 08:13 Dose: 1 tab Albuterol/Ipratropium (Duoneb) 3 ml NEB [id number] [facility] [place] Last Admin: 11/01/18 07:30 Dose: 3 ml Lipase/Protease/Amylase ([place] [id number]) 1 cap FS .PER PROTOCOL PRN PRN Reason: TUBE OCCLUSION PROTOCOL Last Admin: 11/01/18 05:47 Dose: 1 cap Artificial Tears (Tears Renewed 15ml Bottle) 1 - 2 drop EA EYE BID [facility] [place] Last Admin: 11/01/18 08:14 Dose: 1 drop Artificial Tears (Tears Naturale) 2 drop EA EYE PRN PRN PRN Reason: Dry Eyes Bisacodyl (Dulcolax) 10 mg [place] DAILYPRN PRN PRN Reason: Constipation Clotrimazole (Lotrimin 1% Cream) 0 gm TOP BID [facility] [place] Last Admin: 11/01/18 08:13 Dose: 1 applic Famotidine (Pepcid) 40 mg PER TUBE BID [facility] [place] Last Admin: 11/01/18 08:13 Dose: 40 mg Finasteride (Proscar) 5 mg FS HS [facility] [place] Last Admin: 10/31/18 21:16 Dose: 5 mg Guaifenesin (Robitussin Sf) 200 mg PER TUBE Q4H PRN PRN Reason: Cough Hydralazine HCl (Apresoline) 10 mg SLOW IVP Q4H PRN PRN Reason: SBP > 180 and HR < 70 Hyoscyamine Sulfate (Levsin) 0.125 mg PER TUBE BID [facility] [place] Last Admin: 11/01/18 08:13 Dose: 0.125 mg Piperacillin Sod/Tazobactam (Sod 3.375 gm/ Sodium Chloride) 100 mls @ 200 mls/ hr IVPB Q6HR [facility] [place] Last Admin: 11/01/18 05:46 Dose: 100 mls Clindamycin Phosphate/Dextrose (900 mg/ Device) 50 mls @ 100 mls/hr IVPB Q8HR [facility] [place] Last Admin: 11/01/18 05:47 Dose: 50 mls Vancomycin HCl 1.5 gm/ Sodium (Chloride) 300 mls @ 200 mls/hr IVPB Q24HR@1000 [facility] [place] Last Admin: 11/01/18 10:19 Dose: 300 mls Iron/Minerals/Multivitamins (Theragran M) 1 tab PER TUBE DAILY [facility] [place] Last Admin: 11/01/18 08:13 Dose: 1 tab Loperamide HCl (Imodium) 2 mg PER TUBE PRN PRN PRN Reason: Diarrhea/Loose Stools Loratadine (Claritin) 10 mg PER TUBE DAILYPRN PRN PRN Reason: Sinus Symptoms Mineral Oil/White Petrolatum (Eucerin Cream) 0 gm TOP BIDPRN PRN PRN Reason: Dry Skin Miscellaneous Medication (Pharmacy To Dose) 0 each IVPB PRN PRN PRN Reason: VANC Pharmacy to Dose Ondansetron HCl (Zofran Odt) 4 mg PER TUBE Q6H PRN PRN Reason: Nausea/Vomiting Ondansetron HCl (Zofran) 4 mg IVP Q6H PRN PRN Reason: Nausea/Vomiting Polyethylene Glycol (Miralax) 17 gm PER TUBE DAILY [facility] [place] Last Admin: 11/01/18 08:13 Dose: 17 gm Potassium Chloride (Klor-Con) 40 meq PER TUBE BID-[facility] Last Admin: 11/01/18 08:13 Dose: 40 meq Saccharomyces Boulardii (Florastor) 250 mg PER TUBE BID [facility] [place] Last Admin: 11/01/18 08:16 Dose: 250 mg Scopolamine (Transderm Scop) 1.5 mg TD Q3D [facility] [place] Senna/Docusate Sodium (Senokot S) 2 tab PER TUBE BID PRN PRN Reason: Constipation Sertraline HCl (Zoloft) 50 mg PER TUBE [facility] Last Admin: 10/31/18 21:15 Dose: 50 mg Simethicone (Mylicon Chewable) 80 mg PER TUBE Q8HR [facility] [place] Last Admin: 11/01/18 05:47 Dose: 80 mg Sodium Chloride ([place] Nasal [place] 0.65%) 0 ml EA NARE QIDPRN PRN PRN Reason: Nasal Congestion Sodium Chloride (Flush - Normal Saline) 10 ml IVF Q12HR [facility] [place] Last Admin: 11/01/18 08:20 Dose: 10 ml Sodium Chloride (Flush - Normal Saline) 10 ml IVF PRN PRN PRN Reason: Saline Flush Throat Lozenges (Cepastat Lozenges) 1 dimitrios PO Q2H PRN PRN Reason: Sore Throat Trazodone HCl (Desyrel) 25 mg PER TUBE [facility] Last Admin: 10/31/18 21:14 Dose: 25 mg
[2018-11-01] MEDS: traZODone HCl 50 MG TAB PER TUBE SCH (21:58)
[2018-11-01] MEDS: Finasteride 5 MG TAB FS SCH (22:00)
[2018-11-02] MEDS: Piperacillin/Tazobactam 3.375 GM in Sodium Chloride 0.9% 100 ML IVPB SCH ×2 (01:12→05:04)
[2018-11-02] MEDS: Clindamycin/D5W 900 MG in Premix Bag 1 BAG IVPB SCH (05:04)
[2018-11-02] MEDS: Simethicone Chewable 80 MG TAB PER TUBE SCH ×2 (05:05→10:49)
[2018-11-02 07:49] VITALS: BP 105/60; TEMP 99.5
[2018-11-02 09:09] LABS: Vancomycin, Trough 19.2 ug/mL
[2018-11-02] MEDS: Saccharomyces boulardii 250 MG CAP PER TUBE SCH (10:49)
[2018-11-02] MEDS: Multivitamin W/ Minerals 1 TAB PER TUBE SCH (10:49)
[2018-11-02] MEDS: Famotidine 40 MG/5 ML Oral Suspension PER TUBE SCH (10:49)
[2018-11-02] MEDS: Lactinex Tablet PO SCH (10:49)
[2018-11-02] MEDS: Artificial Tear Sol 15 ML BOT EA EYE SCH (10:50)
[2018-11-02] MEDS: Clotrimazole 1 % Cream 30 GM TUBE TOP SCH (10:50)
[2018-11-02] MEDS: Polyethylene Glycol 3350 17 GM Packet PER TUBE SCH (10:51)
[2018-11-02] MEDS: Vancomycin HCl 1.5 GM in Sodium Chloride 0.9% 250 ML 300 ML IVPB SCH (10:51)
--- NOTE | 2018-11-02 12:12 | DIS ---
DATE OF ADMISSION: 10/26/2018 DATE OF DISCHARGE: 11/02/2018 PRIMARY CARE PHYSICIAN: Dr. El. [facility] DISPOSITION[facility] PRIMARY DISCHARGE DIAGNOSES: 1. Aspiration pneumonia due to regurgitation of food. 2. Sepsis due to aspiration pneumonia. 3. Demand ischemia. 4. Acute kidney failure, improved. 5. Ileus, resolved. SECONDARY DISCHARGE DIAGNOSES: History of cerebrovascular accident with residual weakness, aphasia, dysphagia, benign enlargement of prostate, gastroesophageal reflux disease, hypotension, PEG tube status. PRIMARY PROCEDURE/OPERATION: None. RADIOLOGICAL INVESTIGATION: Chest x-ray showed bilateral interstitial infiltration consistent with aspiration pneumonia. SIGNIFICANT LABORATORY DATA: WBC 6.9, hemoglobin 9.8, and platelet 136. Sodium 145, potassium 3.5, BUN 12, creatinine 0.72, and calcium 8.5. LFT normal. Troponin 0.232. Blood culture showed enterococcus faecalis and coagulase negative Staph aureus. Urine culture negative. DISCHARGE MEDICATIONS: New medications; 1. Augmentin 875 mg twice daily for 10 days. 2. Doxycycline 100 mg twice daily for 10 days. Continue following medications; 1. DuoNeb q.4 hourly p.r.n. 2. Vitamin C 500 mg per tube daily. 3. Pepcid 40 mg 5 mL per tube b.i.d. 4. Proscar 5 mg per tube daily. 5. Ferrous sulfate 300 mg per tube daily. 6. Levsin 0.125 mg per tube b.i.d. 7. MiraLAX 17 g per tube daily. 8. Zoloft 50 mg per tube daily. 9. Zinc sulfate 220 mg per tube daily. 10. Floranex 1 tablet per tube daily. 11. Potassium chloride 40 mEq per tube daily. 12. Scopolamine patch every 3 days. 13. Colace 100 mg per tube b.i.d. CONTRAINDICATION: None. CODE STATUS: DNR. INPATIENT APPLIANCE SERVICE SUPERVISOR: None. ALLERGIES: NO KNOWN DRUG ALLERGIES. DISCHARGE PLAN: Posthospital, the patient is discharged back to group home. HOSPITAL COURSE: A 77-year-old male, who was admitted by Dr. Steele on October 26, 2018. Please see his H and P for further details. The patient was having increasing shortness of breath, cough, and gurgling sound in his chest. He was hypoxic. This patient's chest x-ray was consistent with aspiration pneumonia. He was meeting sepsis criteria on admission. He was admitted to the hospital. He had elevated troponin because of demand ischemia. He was given broad-spectrum antibiotic therapy. He was treated with vancomycin, Zosyn, and clindamycin. Subsequently, upon stabilization, this patient was transferred to medical floor. We continued with vancomycin, Zosyn, and clindamycin. Repeat chest x-ray showed some improvement. We added scopolamine patch to prevent any gurgling sound. He remained hemodynamically stable. Previous medication will be continued as ordered. The patient is afebrile. He is hemodynamically stable. He is up to his baseline level. I have seen and examined the patient at bedside. REVIEW OF SYSTEMS: All review of systems, I tried to review with the patient, but unable to review because of baseline cognitive deficit. PHYSICAL EXAMINATION: VITAL SIGNS: Currently, temperature 98.6, pulse 66, respiratory rate 20, saturation 96% on room air, and blood pressure 105/60. Weight 154 pounds. GENERAL: The patient is currently alert, awake, arousable, follows simple commands. No obvious acute distress. HEENT: Head, normocephalic and atraumatic. Eyes; pupils are round and reactive to light. Extraocular muscle intact. ENT; oropharynx within normal limits. Moist mucous membrane. No oral lesion. No pharyngeal erythema. No exudate. NECK: Supple. No JVD. No thyromegaly. No carotid bruit. LUNGS: Coarse breath sounds. No wheeze. No rhonchi. CARDIAC: S1 and S2. Regular. ABDOMEN: Soft. Bowel sounds present. PEG tube in place. EXTREMITIES: No edema. NEUROLOGIC: The patient does have a baseline deficit as well as aphasia, dysphagia, and weakness. Paperwork for discharge done and discharge medication reconciliation done. Total time spent on discharge day, 31 minutes. Job ID: [id number]
== END 2018-11-02 11:49 | DRG 871 ==
LOC: ERS 05:08 → 2SE 08:47 → T4-A 16:16
PROVIDERS: ADMIT Family Medicine; ATTEND Family Medicine
DX: A41.9 Sepsis, unspecified organism (principal); J69.0 Pneumonitis due to inhalation of food and vomit; I69.359 Hemiplegia and hemiparesis following cerebral infarction affecting unspecified side; I24.8 Other forms of acute ischemic heart disease; N17.9 Acute kidney failure, unspecified; K56.7 Ileus, unspecified; I69.320 Aphasia following cerebral infarction; I69.391 Dysphagia following cerebral infarction; N40.0 Benign prostatic hyperplasia without lower urinary tract symptoms; K21.9 Gastro-esophageal reflux disease without esophagitis; Z93.1 Gastrostomy status; Z66 Do not resuscitate
CPT/HCPCS: 36415; 71045; 80048; 80053; 80202; 82553; 83605; 83735; 85007; 85027; 94640; 94667; 94668; 94760; 96360; 96361; G8978-GP-CM; G8979-GP-CL; G8987-GO-CN; G8988-GO-CN; G8989-GO-CN; G8996-GN-CN; G8997-GN-CN; G8998-GN-CN; J2543; J3370; J3490; J7050; J7620

== ENCOUNTER 2018-12-16 13:46 | Outpatient (CLI) | payer MEDICARE, BC ==
[2018-12-16] MEDS ORDERED: Sodium Chloride 0.9% 15 ML NEB ONE (15:00)
--- NOTE | 2018-12-16 18:41 | HP ---
HISTORY OF PRESENT ILLNESS: Mr. Ellen Angelo is a 78-year-old gentleman accompanied by his , who [facility] for evaluation of 2 wounds of the left lower extremity. The patient has 1 wound over the left heel in addition to the wound over the left medial ankle in the region of the malleolus. The patient's states that the wounds began as "red spots". She states that the wounds have been present for approximately 2 months and have been treated with "honey pads" or "something with honey in it." She states that 3 weeks ago, the wounds had improved in their appearance, but subsequently worsened. The patient resides at [facility]. 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 The patient has been residing at [facility] since November 2015. PAST MEDICAL HISTORY: 1. 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 2. COPD. 3. Hypertension. 4. Enlarged prostate. PAST SURGICAL HISTORY: 1. TURP. 2. Back surgery x3. 3. Surgery for broken jaw. MEDICATIONS: 1. Bactrim DS. 2. Levsin. 3. Zoloft. 4. Transdermal scopolamine patch. 5. Trazodone. 6. Potassium chloride. 7. Ferrous sulfate. 8. Tylenol. 9. Lactobacillus. 10. Pepcid. 11. Senna. 12. Simethicone. ALLERGIES: NO KNOWN DIAGNOSED ALLERGIES. SOCIAL HISTORY: Social history is significant for tobacco use of up to 3 packs of cigarettes per day beginning at age 16. The patient apparently stopped smoking in September 2015. The patient's social history is also significant for the "social" use of alcohol in the past. The patient apparently stopped consuming alcohol all together also in September 2015. FAMILY HISTORY: Family history significant for coronary artery disease. The patient's mother and father were both diagnosed with coronary artery disease. Family history is negative for diabetes mellitus. PHYSICAL EXAMINATION: VITAL SIGNS: Temperature 97.5, pulse 91, respirations 23, and blood pressure 149/116. GENERAL: A 78-year-old gentleman lying on stretcher in examination room, in no acute distress. HEENT: Normocephalic and atraumatic. NECK: No nuchal rigidity. CHEST: Clear to auscultation. CV: Regular rate and rhythm. ABDOMEN: Soft. EXTREMITIES: A large wound over the left heel is present, which measures approximately 7.0 x 7.5 cm. Soft eschar covers the left heel. No purulent drainage is associated with the wound. Erythema of the skin surrounding the wound is present. An ulceration is also present over the left medial ankle in the region of the malleolus. The dimensions of the wound are approximately 2.1 x 2.2 cm. Granulation tissue is visible within the wound margins. No purulent drainage is associated with the wound. No erythema of the skin surrounding the wound is present. No maceration of the skin of the periwound is noted. A dorsalis pedis pulse or posterior tibial pulse is not palpable on the left. Both pulses are only faintly audible by Doppler. No significant edema of the left foot is appreciated on exam today. ASSESSMENT AND PLAN: 1. Ulcerations of left foot as described above. I will discuss the treatment plan with the patient's wound care nurse at [facility]. The patient has been provided with a heel lift boot. Arrangements will also be made for the patient to be seen in consultation by Dr. Alphonso Harris. The left heel wound will be dressed with Kerlix. The wound of the left medial ankle will be dressed with Medihoney followed by Mepilex border. The dressing changes for the wounds are to be performed every other day at [facility]. I will see Mr. Angelo again after evaluation and any necessary treatment has been initiated by Cardiovascular Surgery. The patient's understands and is in agreement with the preceding treatment plan. The patient will continue Bactrim DS as previously prescribed. 2. Aphasia secondary to cerebrovascular accident in September 2015. 3. Chronic obstructive pulmonary disease. 4. Hypertension. 5. Enlarged prostate. 6. Peripheral vascular disease. Arrangements will be made for the patient to be seen in consultation by Dr. Harris of Cardiovascular Surgery. Job ID: [id number]
== END 2018-12-16 13:47 | disposition home or self-care (01) ==
LOC: WCC 13:46
PROVIDERS: ATTEND Family Medicine
DX: L97.529 Non-pressure chronic ulcer of other part of left foot with unspecified severity (principal); I69.820 Aphasia following other cerebrovascular disease; J44.9 Chronic obstructive pulmonary disease, unspecified; I10 Essential (primary) hypertension; I73.9 Peripheral vascular disease, unspecified; N40.0 Benign prostatic hyperplasia without lower urinary tract symptoms
CPT/HCPCS: 97139; 97602; G0463; 99204; A4218